=== PATIENT | female | born 1975 | race Caucasian/White ===

== ENCOUNTER 2016-10-11 18:40 | Emergency (ER) | payer MEDICAID, OTHER ==
[~2016-10-11 18:40] MED LIST: ATIV1TAB10 PO; PAXI30TA11 PO; PERC5TAB6 PO; XANA0.25 PO
[2016-10-11] MEDS ORDERED: LIDOCAINE 2% MDV 20 ML VIAL As Ordered ONE (20:19)
[2016-10-11] MEDS ORDERED: CLINDAMYCIN 150 MG CAP As Ordered ONE (20:19)
[2016-10-11] MEDS ORDERED: ADACEL/BOOSTRIX VACCINE (DIPHTH/PERTUSS/ACELL/TETANUS)0.5ML SYR (90715) As Ordered ONE (21:25)
--- NOTE | 2016-10-11 21:33 | EDDOCDS ---
Physician Documentation [facility] Name: Aisha Barcenas Age: 41 yrs Sex: Female : 1975 Arrival Date: 10/11/2016 Time: 18:40 Bed I1 / M1 Private MD: Huy Tolliver A. Disposition: 10/11/16 21:23 Discharged to Home/Self Care. Impression: Open wound of thumb without damage to nail - LEFT. - Condition is Stable. - Discharge Instructions: Laceration Care, Adult. - Prescriptions for Clindamycin HCl 300 mg Oral Capsule - take 1 capsule by ORAL route every 6 hours; 40 capsule. - Medication Reconciliation, Local Pharmacy Hours form. - Follow up: Huy Tolliver; When: 1 week; Reason: Staple/Suture removal, Recheck today's complaints, Continuance of care. - Problem is new. - Symptoms have improved. - Notes: PLEASE FOLLOW UP WITH YOUR DOCTOR NEXT WEEK FOR SUTURE REMOVAL, RETURN TO THE ER IF INCREASED PAIN, REDNESS, SWELLING, DISCHARGE OR OTHER CONCERNING SYMPTOMS ARISE Historical: - Allergies: arithmycin; Penicillin VK; - Home Meds: 1. Paxil 20 mg Oral tab once daily 2. Ativan 1 mg Oral tab as needed 3. Xanax 0.5 mg Oral tab as needed - PMHx: CLL; PNES; Anxiety; - PSHx: Hysterectomy; - Immunization history:: Last tetanus immunization: unknown reports greater than 5 years. - Family history: Not pertinent. - Social history: Smoking status: Patient states former smoker of tobacco. No barriers to communication noted, The patient speaks fluent Portuguese, Speaks appropriately for age. - : The pt / caregiver states he / she is not on anticoagulants. Home medication list is obtained from the patient. - Exposure Risk Screening:: None identified. 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 5 in. (165.10 cm); 21:30 BP 135 / 85; Pulse 72; Resp 18; Temp 98(O); Pulse Ox 99% on R/A; Pain 2/10; rs3 18:41 Body Mass Index 27.96 (76.20 kg, 165.10 cm) dem1 Procedures: 21:10 Laceration repair:. ck7 Laceration: 21:10 Wound Repair of 1cm ( 0.4in ) full thickness laceration to palmar aspect of distal ck7 phalanx of left thumb. Skin/tissue flap noted.. Minimal bleeding noted.. Distal neuro/vascular/tendon intact. Anesthesia: Digital block administered with 2 mls of 2% lidocaine. Wound prep: Extensive cleansing with hibiclenz by provider, Wound explored extensively. Skin closed with 3 x 4-0 Prolene using Simple interrupted sutures. Dressed with bandaid. Patient tolerated well. MDM: 20:13 Lidocaine 20 mg/mL (2 %) 10 ml Infiltration once; to bedside ordered. ck7 20:13 Clindamycin 300 mg PO once ordered. ck7 21:23 Tetanus-Diphtheria Toxoid (Tenivac) Adult 0.5 ml IM once; Age 7-10 or >[address] [facility] child contact [facility] ordered. 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 Exp: 10/21/2018. Lot #: [id number]. } Route: IM; Site: right deltoid; Signatures: Dena Gonzales RN RN rs3 Suresh Vásquez RPA-C RPA-Cck7 Elizabet Gandhi RN RN ead Farman, Justin, RN RN jf3 Crane, Kelsi RN kc3 The chart was reviewed and I authenticate all verbal orders and agree with the evaluation and treatment provided.Corrections: (The following items were deleted from the chart) :23 21:23 Tetanus Immune Globulin (PF) 250 units IM once ordered. ck7 ck7 MTDD
--- NOTE | 2016-10-11 21:33 | EDDOCDS ---
Nurse's Notes [facility] Name: Aisha Barcenas Age: 41 yrs Sex: Female : 1975 Arrival Date: 10/11/2016 Time: 18:40 Bed I1 / M1 Private MD: Huy Tolliver A. Diagnosis: Open wound of thumb without damage to nail-LEFT Presentation: 10/11 18:43 Presenting complaint: Patient states: pt reports cutting tip of left thumb with ceramic ead kitchen, incident occurred approx 1 hour ago. bleeding is controlled. pt states went to [facility] and told to come to ER. Adult Sepsis Screening: The patient does not have new or worsening altered mentation. Patient's respiratory rate is less than 22. Systolic blood pressure is greater than 100. Patient has a qSOFA score of 0- Negative Sepsis Screen. Suicide/Homicide risk assessment- the patient denies having any suicidal and/or homicidal ideations and does not present with any other emotional, behavioral or mental health complaints. Status: Patient is not a member service representative or dependent. Transition of care: patient was not received from another setting of care. 18:43 Acuity: JENN Level 4 ead 18:43 Method Of Arrival: Walkin/Carried/Asstd ead Triage Assessment: 18:46 General: Appears in no apparent distress, Behavior is appropriate for age, cooperative. ead Pain: Location: left hand Pain currently is 6 out of 10 on a pain scale. HIV screening NA for this visit Offered previously. Derm: Skin is pink, warm & dry. laceration to left thumb. 21:31 Injury Description: Laceration sustained to palmar aspect of distal phalanx of left rs3 thumb is clean. 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 Paxil 20 mg Oral tab once daily 2. Ativan 1 mg Oral tab as needed 3. Xanax 0.5 mg Oral tab as needed - PMHx: CLL; PNES; Anxiety; - PSHx: Hysterectomy; - Immunization history:: Last tetanus immunization: unknown reports greater than 5 years. - Family history: Not pertinent. - Social history: Smoking status: Patient states former smoker of tobacco. No barriers to communication noted, The patient speaks fluent Gambian, Speaks appropriately for age. - : The pt / caregiver states he / she is not on anticoagulants. Home medication list is obtained from the patient. - Exposure Risk Screening:: None identified. Screenin:18 Screening information is obtained from the patient. Fall risk: No risks identified. jf3 Assistance ADL's: requires no assistance with activities of daily living. Abuse/DV Screen: The patient / caregiver reports he/she is: not in a situation that causes fear, pain or injury. Nutritional screening: No deficits noted. Advance Directives: Currently, there is no health care proxy. There is no active DNR order. home support is adequate. Assessment: 21:18 General: Appears in no apparent distress, comfortable, Behavior is cooperative. Pain: jf3 Denies pain. Neurological: Level of Consciousness is awake, alert, Oriented to person, place, time. Cardiovascular: Capillary refill < 3 seconds Chest pain is denied. Respiratory: Airway is patent Respiratory effort is even, unlabored, Respiratory pattern is regular, symmetrical, Denies shortness of breath. Derm: lac to tip of left thumb, sutured and dressed by MINERVA Knott Wound not visualized. Vital Signs: 18:41 BP 156 / 83; Pulse 78; Resp 18; Temp 98.9(T); Pulse Ox 95% on R/A; Weight 76.2 kg; dem1 Height 5 ft. 5 in. (165.10 cm); 21:30 BP 135 / 85; Pulse 72; Resp 18; Temp 98(O); Pulse Ox 99% on R/A; Pain 2/10; rs3 18:41 Body Mass Index 27.96 (76.20 kg, 165.10 cm) [facility] Vitals: 18:41 Log In Time: October 11, 2016 at 18:38. [facility] ED Course: 18:40 Patient visited by Breezy Colmenares. dem1 18:40 Patient moved to Waiting dem1 18:41 Huy Tolliver is Private Physician. dem1 18:42 Patient moved to Pre RCE dem1 18:44 Triage Initiated ead 19:53 Patient moved to Triage 3 kc3 20:03 Sures[facility] ck7 20:03 Nagi Devries DO is Attending Physician. ck7 20:03 Patient visited by Suresh Vásquez RPA-C. ck7 20:29 Patient moved to I1 / M1 kc3 20:53 Patient visited by Suresh Vásquez RPA-C. ck7 21:18 The patient / caregiver is instructed regarding the plan of care and ED course. jf3 21:18 No IV's were initiated during this patient's visit. No procedures done that require jf3 assistance. 21:23 Patient visited by Suresh Vásquez RPA-C. ck7 21:23 Huy Tolliver is Referral Physician. 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 Exp: 10/21/2018. Lot #: [id number]. } Route: IM; Site: right deltoid; Order Results: There are currently no results for this order. Outcome: 21:23 Discharge ordered by Provider. ck7 21:31 Discharge Assessment: patient administered narcotics - no. The following High Risk rs3 Discharge criteria are identified: None. Discharged to home with family. Condition: stable. Discharge instructions given to patient, Instructed on discharge instructions, follow up and referral plans. medication usage, Demonstrated understanding of instructions, medications, Pt was receptive of discharge instructions/ teaching. Prescriptions given X 1. No special radiology studies were completed. Property :Personal belongings accompany Pt. 21:32 Patient left the ED. rs3 Signatures: Dena GonzalesRN RN rs3 Breezy Colmenares dem1 Suresh Vásquez RPA-C RPA-[facility]7 Elizabet Gandhi RN RN ead Crane, Kelsi, RN RN kc3 Farman,Johnathon,RN RN jf3 ENRIQUED
--- NOTE | 2016-10-13 22:34 | EDDOCDS ---
Physician Documentation [facility] Name: Aisha Barcenas Age: 41 yrs Sex: Female : 1975 Arrival Date: 10/11/2016 Time: 18:40 Bed I1 / M1 Private MD: Huy Tolliver A. Disposition: 10/11/16 21:23 Discharged to Home/Self Care. Impression: Open wound of thumb without damage to nail - LEFT. - Condition is Stable. - Discharge Instructions: Laceration Care, Adult. - Prescriptions for Clindamycin HCl 300 mg Oral Capsule - take 1 capsule by ORAL route every 6 hours; 40 capsule. - Medication Reconciliation, Local Pharmacy Hours form. - Follow up: Huy Tolliver; When: 1 week; Reason: Staple/Suture removal, Recheck today's complaints, Continuance of care. - Problem is new. - Symptoms have improved. - Notes: PLEASE FOLLOW UP WITH YOUR DOCTOR NEXT WEEK FOR SUTURE REMOVAL, RETURN TO THE ER IF INCREASED PAIN, REDNESS, SWELLING, DISCHARGE OR OTHER CONCERNING SYMPTOMS ARISE Historical: - Allergies: arithmycin; Penicillin VK; - Home Meds: 1. Paxil 20 mg Oral tab once daily 2. Ativan 1 mg Oral tab as needed 3. Xanax 0.5 mg Oral tab as needed - PMHx: CLL; PNES; Anxiety; - PSHx: Hysterectomy; - Immunization history:: Last tetanus immunization: unknown reports greater than 5 years. - Family history: Not pertinent. - Social history: Smoking status: Patient states former smoker of tobacco. No barriers to communication noted, The patient speaks fluent Romansh, Speaks appropriately for age. - : The pt / caregiver states he / she is not on anticoagulants. Home medication list is obtained from the patient. - Exposure Risk Screening:: None identified. 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 5 in. (165.10 cm); 21:30 BP 135 / 85; Pulse 72; Resp 18; Temp 98(O); Pulse Ox 99% on R/A; Pain 2/10; rs3 18:41 Body Mass Index 27.96 (76.20 kg, 165.10 cm) dem1 Procedures: 21:10 Laceration repair:. ck7 Laceration: 21:10 Wound Repair of 1cm ( 0.4in ) full thickness laceration to palmar aspect of distal ck7 phalanx of left thumb. Skin/tissue flap noted.. Minimal bleeding noted.. Distal neuro/vascular/tendon intact. Anesthesia: Digital block administered with 2 mls of 2% lidocaine. Wound prep: Extensive cleansing with hibiclenz by provider, Wound explored extensively. Skin closed with 3 x 4-0 Prolene using Simple interrupted sutures. Dressed with bandaid. Patient tolerated well. MDM: 20:13 Lidocaine 20 mg/mL (2 %) 10 ml Infiltration once; to bedside ordered. ck7 20:13 Clindamycin 300 mg PO once ordered. ck7 21:23 Tetanus-Diphtheria Toxoid (Tenivac) Adult 0.5 ml IM once; Age 7-10 or >64 without [facility] child contact [facility] [employer] ordered. 21:37 Financial registration complete. zo 21:37 [facility] Payment Agreement was scanned into [employer] and attached to record. zo 10/12 11:06 T-Sheet-- Draft Copy was scanned into [employer] and attached to record. 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 Exp: 10/21/2018. Lot #: [id number]. } Route: IM; Site: right deltoid; Signatures: Una Nolan, Reg Reg gb Keny Cameron RosemaryRN RN rs3 Suresh Vásquez, DARIN-C RPA-Cck7 Elizabet GandhiRN RN Johnathon Pemberton RN RN jf3 Megan Ferris RN kc3 The chart was reviewed and I authenticate all verbal orders and agree with the evaluation and treatment provided.Corrections: (The following items were deleted from the chart) 21:23 21:23 Tetanus Immune Globulin (PF) 250 units IM once ordered. ck7 ck7 Attachments: 21:37 [facility] Payment Agreement zo 10/12 11:06 T-Sheet-- Draft Copy gb Chart Complete MTDD
--- NOTE | 2016-10-13 22:34 | EDDOCDS ---
Physician Documentation [facility] Name: Aisha Barcenas Age: 41 yrs Sex: Female : 1975 Arrival Date: 10/11/2016 Time: 18:40 Bed I1 / M1 Private MD: Huy Tolliver A. Disposition: 10/11/16 21:23 Discharged to Home/Self Care. Impression: Open wound of thumb without damage to nail - LEFT. - Condition is Stable. - Discharge Instructions: Laceration Care, Adult. - Prescriptions for Clindamycin HCl 300 mg Oral Capsule - take 1 capsule by ORAL route every 6 hours; 40 capsule. - Medication Reconciliation, Local Pharmacy Hours form. - Follow up: Huy Tolliver; When: 1 week; Reason: Staple/Suture removal, Recheck today's complaints, Continuance of care. - Problem is new. - Symptoms have improved. - Notes: PLEASE FOLLOW UP WITH YOUR DOCTOR NEXT WEEK FOR SUTURE REMOVAL, RETURN TO THE ER IF INCREASED PAIN, REDNESS, SWELLING, DISCHARGE OR OTHER CONCERNING SYMPTOMS ARISE Historical: - Allergies: arithmycin; Penicillin VK; - Home Meds: 1. Paxil 20 mg Oral tab once daily 2. Ativan 1 mg Oral tab as needed 3. Xanax 0.5 mg Oral tab as needed - PMHx: CLL; PNES; Anxiety; - PSHx: Hysterectomy; - Immunization history:: Last tetanus immunization: unknown reports greater than 5 years. - Family history: Not pertinent. - Social history: Smoking status: Patient states former smoker of tobacco. No barriers to communication noted, The patient speaks fluent Persian, Speaks appropriately for age. - : The pt / caregiver states he / she is not on anticoagulants. Home medication list is obtained from the patient. - Exposure Risk Screening:: None identified. 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 5 in. (165.10 cm); 21:30 BP 135 / 85; Pulse 72; Resp 18; Temp 98(O); Pulse Ox 99% on R/A; Pain 2/10; rs3 18:41 Body Mass Index 27.96 (76.20 kg, 165.10 cm) dem1 Procedures: 21:10 Laceration repair:. ck7 Laceration: 21:10 Wound Repair of 1cm ( 0.4in ) full thickness laceration to palmar aspect of distal ck7 phalanx of left thumb. Skin/tissue flap noted.. Minimal bleeding noted.. Distal neuro/vascular/tendon intact. Anesthesia: Digital block administered with 2 mls of 2% lidocaine. Wound prep: Extensive cleansing with hibiclenz by provider, Wound explored extensively. Skin closed with 3 x 4-0 Prolene using Simple interrupted sutures. Dressed with bandaid. Patient tolerated well. MDM: 20:13 Lidocaine 20 mg/mL (2 %) 10 ml Infiltration once; to bedside ordered. ck7 20:13 Clindamycin 300 mg PO once ordered. ck7 21:23 Tetanus-Diphtheria Toxoid (Tenivac) Adult 0.5 ml IM once; Age 7-10 or >64 without [facility] child contact [facility] [employer] ordered. 21:37 Financial registration complete. zo 21:37 [facility] Payment Agreement was scanned into [employer] and attached to record. zo 10/12 11:06 T-Sheet-- Draft Copy was scanned into [employer] and attached to record. 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 Exp: 10/21/2018. Lot #: [id number]. } Route: IM; Site: right deltoid; Signatures: Una Nolan, Reg Reg gb Keny Cameron RosemaryRN RN rs3 Suresh Vásquez, DARIN-C RPA-Cck7 Elizabet GandhiRN RN Johnathon Pemberton RN RN jf3 Megan Ferris RN kc3 The chart was reviewed and I authenticate all verbal orders and agree with the evaluation and treatment provided.Corrections: (The following items were deleted from the chart) 21:23 21:23 Tetanus Immune Globulin (PF) 250 units IM once ordered. ck7 ck7 Attachments: 21:37 [facility] Payment Agreement zo 10/12 11:06 T-Sheet-- Draft Copy gb Chart Complete MTDD
--- NOTE | 2016-10-13 22:34 | EDDOCDS ---
Nurse's Notes [facility] Name: Aisha Barcenas Age: 41 yrs Sex: Female : 1975 Arrival Date: 10/11/2016 Time: 18:40 Bed I1 / M1 Private MD: Huy Tolliver A. Diagnosis: Open wound of thumb without damage to nail-LEFT Presentation: 10/11 18:43 Presenting complaint: Patient states: pt reports cutting tip of left thumb with ceramic ead kitchen, incident occurred approx 1 hour ago. bleeding is controlled. pt states went to [facility] and told to come to ER. Adult Sepsis Screening: The patient does not have new or worsening altered mentation. Patient's respiratory rate is less than 22. Systolic blood pressure is greater than 100. Patient has a qSOFA score of 0- Negative Sepsis Screen. Suicide/Homicide risk assessment- the patient denies having any suicidal and/or homicidal ideations and does not present with any other emotional, behavioral or mental health complaints. Status: Patient is not a social service manager or dependent. Transition of care: patient was not received from another setting of care. 18:43 Acuity: JENN Level 4 ead 18:43 Method Of Arrival: Walkin/Carried/Asstd ead Triage Assessment: 18:46 General: Appears in no apparent distress, Behavior is appropriate for age, cooperative. ead Pain: Location: left hand Pain currently is 6 out of 10 on a pain scale. HIV screening NA for this visit Offered previously. Derm: Skin is pink, warm & dry. laceration to left thumb. 21:31 Injury Description: Laceration sustained to palmar aspect of distal phalanx of left rs3 thumb is clean. 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 Paxil 20 mg Oral tab once daily 2. Ativan 1 mg Oral tab as needed 3. Xanax 0.5 mg Oral tab as needed - PMHx: CLL; PNES; Anxiety; - PSHx: Hysterectomy; - Immunization history:: Last tetanus immunization: unknown reports greater than 5 years. - Family history: Not pertinent. - Social history: Smoking status: Patient states former smoker of tobacco. No barriers to communication noted, The patient speaks fluent [place], Speaks appropriately for age. - : The pt / caregiver states he / she is not on anticoagulants. Home medication list is obtained from the patient. - Exposure Risk Screening:: None identified. Screenin:18 Screening information is obtained from the patient. Fall risk: No risks identified. jf3 Assistance ADL's: requires no assistance with activities of daily living. Abuse/DV Screen: The patient / caregiver reports he/she is: not in a situation that causes fear, pain or injury. Nutritional screening: No deficits noted. Advance Directives: Currently, there is no health care proxy. There is no active DNR order. home support is adequate. Assessment: 21:18 General: Appears in no apparent distress, comfortable, Behavior is cooperative. Pain: jf3 Denies pain. Neurological: Level of Consciousness is awake, alert, Oriented to person, place, time. Cardiovascular: Capillary refill < 3 seconds Chest pain is denied. Respiratory: Airway is patent Respiratory effort is even, unlabored, Respiratory pattern is regular, symmetrical, Denies shortness of breath. Derm: lac to tip of left thumb, sutured and dressed by MINERVA Knott Wound not visualized. Vital Signs: 18:41 BP 156 / 83; Pulse 78; Resp 18; Temp 98.9(T); Pulse Ox 95% on R/A; Weight 76.2 kg; dem1 Height 5 ft. 5 in. (165.10 cm); 21:30 BP 135 / 85; Pulse 72; Resp 18; Temp 98(O); Pulse Ox 99% on R/A; Pain 2/10; rs3 18:41 Body Mass Index 27.96 (76.20 kg, 165.10 cm) [facility] Vitals: 18:41 Log In Time: October 11, 2016 at 18:38. [facility] ED Course: 18:40 Patient visited by Breezy Colmenares. dem1 18:40 Patient moved to Waiting dem1 18:41 Huy Tolliver is Private Physician. dem1 18:42 Patient moved to Pre RCE dem1 18:44 Triage Initiated ead 19:53 Patient moved to Triage 3 kc3 20:03 [facility]ures[facility]C [facility]. ck7 20:03 Nagi Devries DO is Attending Physician. ck7 20:03 Patient visited by Suresh Vásquez RPA-C. ck7 20:29 Patient moved to I1 / M1 kc3 20:53 Patient visited by Suresh Vásquez RPA-C. ck7 21:18 The patient / caregiver is instructed regarding the plan of care and ED course. jf3 21:18 No IV's were initiated during this patient's visit. No procedures done that require jf3 assistance. 21:23 Patient visited by Suresh Vásquez RPA-C. ck7 21:23 Huy Tolliver is Referral Physician. ck7 21:37 REPLACED BY [facility] Payment Agreement was scanned into [employer] and attached to record. zo 10/12 11:06 T-Sheet-- Draft Copy was scanned into [employer] and attached to record. gb Administered Medications: 10/11 20:22 Drug: Lidocaine 10 ml [lidocaine 20 mg/mL (2 %) injection solution (10 mL)] {Note: kc3 administered by Suresh Vásquez PA-C.} Route: Infiltration; 20:22 Drug: Clindamycin 300 mg [clindamycin 150 mg capsule (2 caps)] Route: PO; kc3 21:23 CANCELLED (Other Intervention Used): Tetanus Immune Globulin (PF) 250 units IM once ck7 21:32 Drug: Tetanus-Diphtheria Toxoid (Tenivac) 0.5 ml [tetanus-diphtheria toxoids-Td 2 Lf rs3 unit-2 Lf unit/0.5 mL IM suspension (0.5 mL)] {Radio Survey Worker: [employer]. Exp: 10/21/2018. Lot #: [id number]. } Route: IM; Site: right deltoid; Order Results: There are currently no results for this order. Outcome: 21:23 Discharge ordered by Provider. ck7 21:31 Discharge Assessment: patient administered narcotics - no. The following High Risk rs3 Discharge criteria are identified: None. Discharged to home with family. Condition: stable. Discharge instructions given to patient, Instructed on discharge instructions, follow up and referral plans. medication usage, Demonstrated understanding of instructions, medications, Pt was receptive of discharge instructions/ teaching. Prescriptions given X 1. No special radiology studies were completed. Property :Personal belongings accompany Pt. 21:32 Patient left the ED. rs3 Signatures: Una Nolan, Reg Reg gb Keny Cameron Rosemary,RN RN rs3 Breezy Colmenares dem1 Suresh Vásquez, RPA-C RPA-Cck7 Elizabet Gandhi,RN RN carmend Megan Ferris,RN RN kc3 Johnathon Melendez,RN RN jf3 Chart Complete MTDD
== END 2016-10-11 21:32 | disposition home or self-care (01) ==
LOC: M ED 18:40
DX: S61.002A Unspecified open wound of left thumb without damage to nail, initial encounter (principal); W26.0XXA Contact with knife, initial encounter; Y92.010 Kitchen of single-family (private) house as the place of occurrence of the external cause; Y93.G1 Activity, food preparation and clean up; Y99.9 Unspecified external cause status; F44.5 Conversion disorder with seizures or convulsions; F41.9 Anxiety disorder, unspecified; Z87.891 Personal history of nicotine dependence; Z79.899 Other long term (current) drug therapy; Z88.0 Allergy status to penicillin

== ENCOUNTER → 2017-03-03 | Outpatient (CLI) | payer OTHER ==
[~2017-03-03] MED LIST changes: +CETI10TA; +PERC5TAB12 PO; -PERC5TAB6 PO; +SMZ/TMP
--- NOTE | 2017-03-03 16:32 | REP ---
Digital screening bilateral mammography with CAD: No comparison mammography. Findings: Scattered fibroglandular elements are seen bilaterally. There is a 6 mm nodule in the left central breast just medial to the plane of the nipple which merits further evaluation. No other significant mammographic finding. Impression: BIRADS category zero incomplete breast imaging. 6 mm nodular density middle third left breast centrally. Recommend diagnostic left breast mammography and focused left breast sonography. This mammogram was interpreted with the aid of an FDA-approved computer-aided detection system. The patient states she had a clinical breast exam in February 2017. The patient letter being requested is M0.
== END ==
LOC: M WHC 13:45
PROVIDERS: ATTEND Nurse Practitioner Women's Health
DX: Z12.31 Encounter for screening mammogram for malignant neoplasm of breast (principal); N63 Unspecified lump in breast; R92.2 Inconclusive mammogram

== ENCOUNTER 2017-03-16 21:58 | Emergency (ER) | payer MEDICAID, OTHER ==
[~2017-03-16] VITALS: Ht 165.1 cm; Wt 196.0 kg
[~2017-03-16 21:58] MED LIST changes: -CETI10TA; -SMZ/TMP
[2017-03-16] MEDS ORDERED: SMZ/TMP (22:24)
[2017-03-16] MEDS ORDERED: CETI10TA (22:24)
[2017-03-17] MEDS ORDERED: LIDOCAINE 2% MDV 20 ML VIAL SC ONE (03:15)
[2017-03-17 04:07] VITALS: BP 131/64
== END 2017-03-17 04:41 | disposition home or self-care (01) ==
LOC: M ED 21:58
DX: L02.416 Cutaneous abscess of left lower limb (principal)

== ENCOUNTER → 2017-03-25 | Outpatient (CLI) | payer OTHER ==
[~2017-03-25] MED LIST changes: +CETI10TA; +SMZ/TMP
--- NOTE | 2017-03-25 15:15 | REP ---
DIGITAL DIAGNOSTIC UNILATERAL LEFT BREAST MAMMOGRAPHY WITH CAD AND FOCUSED LEFT BREAST SONOGRAPHY: HISTORY: Screening mammography from 03/03/2017 is BIRADS category 0, incomplete because of a 6 mm nodular density in the middle third of the left breast. MAMMOGRAPHIC FINDINGS: Magnified focal spot compression CC, true MLO, and MLO views of the left breast confirm the presence of a partially circumscribed 6 mm nodule in the middle third of the left breast superior and slightly medial to the plane of the nipple at approximately 11-o'clock position. Scattered fibroglandular elements are seen elsewhere in the left breast, unchanged. No other significant finding. No microcalcification seen. SONOGRAPHIC FINDINGS: Focused left breast sonography is performed from 9-o'clock to 12- o'clock position. At approximately 12-o'clock position, there is a hypoechoic area measuring 0.8 x 0.3 x 0.6 cm located 7.3 cm from the nipple. This it is felt to correspond with the mammographic opacity. No internal blood flow is seen. No enhanced through transmission is noted. This is likely a small fibroadenoma or intramammary lymph node. IMPRESSION: BIRADS category 3, probably benign left mammography. 6-month followup left breast mammography and sonography recommended. BI-RADS/ACR category 3 mammogram. Probably benign findings. Initial short-term followup (usually 6 month) examination. This mammogram was interpreted with the aid of an FDA-approved computer-aided detection system. The patient states she/he had a clinical breast exam in 02/2017. The patient letter being requested is M3. Signed by Keith Garcias MD 03/25/2017 04:34 P
== END ==
LOC: M RAD 13:05
PROVIDERS: ATTEND Nurse Practitioner Women's Health
DX: R92.8 Other abnormal and inconclusive findings on diagnostic imaging of breast (principal)

== ENCOUNTER → 2017-09-29 | Outpatient (CLI) | payer OTHER | LOC: M RAD 12:19 | DX: Z85.6 Personal history of leukemia (principal); R59.0 Localized enlarged lymph nodes; R92.8 Other abnormal and inconclusive findings on diagnostic imaging of breast | CPT/HCPCS: 77065 ==

== ENCOUNTER → 2017-09-29 | Outpatient (CLI) | payer OTHER | LOC: M LAB 13:34 | DX: R63.5 Abnormal weight gain (principal) | CPT/HCPCS: 84443 ==

== ENCOUNTER → 2017-10-22 | Outpatient (CLI) | payer OTHER, MEDICAID | LOC: M LRY 17:26 | DX: M79.632 Pain in left forearm (principal) | CPT/HCPCS: 73090 ==

== ENCOUNTER → 2018-03-27 | Outpatient (CLI) | payer OTHER | LOC: M RAD 09:53 | DX: R92.8 Other abnormal and inconclusive findings on diagnostic imaging of breast (principal); R59.0 Localized enlarged lymph nodes | CPT/HCPCS: 77066 ==

== ENCOUNTER → 2018-04-03 | Outpatient (CLI) | payer OTHER | LOC: M RAD 10:49 | DX: J32.0 Chronic maxillary sinusitis (principal) | CPT/HCPCS: 70486 ==

== ENCOUNTER → 2018-10-17 | Outpatient (REF) | payer OTHER | LOC: M SFHCLERA 14:05 | PROVIDERS: ATTEND Physician Assistant | DX: J02.9 Acute pharyngitis, unspecified (principal) ==

== ENCOUNTER → 2018-11-07 | Outpatient (CLI) | payer OTHER ==
--- NOTE | 2018-11-07 16:00 | REP ---
UNILATERAL MAMMOGRAM LEFT BREAST WITH LEFT BREAST ULTRASOUND: Family history of breast cancer at age 50 or over in maternal grandmother. Comparison mammogram 03/27/2018. Patient has had enlarged left axillary lymph node felt to be related to history of CLL. There is also a history of a nodule in the left breast at about 11 o'clock. MLO and CC views of the left breast are performed with 3D tomosynthesis. Parenchymal pattern is unchanged. There is no new mass or clustered microcalcifications. Stable left axillary lymph nodes are present, the largest measures approximately 3.3 cm in maximum diameter, unchanged. No new mass or clustered microcalcifications are seen. Real-time sonographic evaluation of the left breast performed in the region of 11 o'clock. Once again, there is an oval nodule which appears unchanged, measuring about 8 x 3 x 7 mm. There is an adjacent tiny 3 mm cyst at 10 o'clock. IMPRESSION: BIRADS 3: BI-RADS/ACR category 3 mammogram. Probably Benign Findings. Stable left axillary lymph nodes present without other change by mammography. Stable oval hypoechoic nodule left breast at the 11 o'clock position. Recommend followup mammogram bilaterally in March 2019. [facility] lifetime risk of breast cancer 14.8%. This mammogram was interpreted with the aid of an FDA-approved computer-aided detection system. The patient states she/he had a clinical breast exam in 03/2018. The patient letter being requested is M3. Electronically Signed by Julian Alonzo MD 11/08/2018 01:51 P
== END ==
LOC: M RAD 12:20
PROVIDERS: ATTEND Nurse Practitioner Women's Health
DX: R92.8 Other abnormal and inconclusive findings on diagnostic imaging of breast (principal)
CPT/HCPCS: 76642; 77065; G0279

== ENCOUNTER → 2019-03-29 | Outpatient (CLI) | payer OTHER ==
--- NOTE | 2019-03-29 12:51 | REP ---
BILATERAL MAMMOGRAM WITH 3D TOMOSYNTHESIS AND LEFT BREAST ULTRASOUND: Bilateral mammography performed in the MLO and CC projections. 3D tomosynthesis was performed. Comparison made with multiple prior exams, most recently 11/07/2018 and 03/27/2018. FAMILY HISTORY: Breast cancer maternal grandmother. [facility]di M[facility] lifetime risk of breast cancer 14.8%. Personal history CLL. Fibroglandular pattern is unchanged with mild scattered fibroglandular tissue bilaterally. Nodular density posteromedially in the left breast is stable. There is again a prominent left axillary lymph node which appears stable measuring about 3.1 cm in diameter on the left MLO view. There is no new mass or clustered microcalcifications. Real-time sonographic evaluation of the left breast is performed at 11-o'clock at the site of the previously noted hypoechoic nodule. This nodule is stable since March 2017 measuring 9 x 7 x 4 mm. Since it is stable for 2 years, it is considered benign. In the left axilla, there are several lymph nodes identified. The largest measures 3.1 cm maximally corresponding to the lymph node seen on the mammogram. This has remained stable since September 2017. IMPRESSION: ACR 3 probably benign. No new mass or clustered microcalcifications. Stable hypoechoic nodule 11-o'clock left breast compared to prior studies dating back two years. This can be considered benign. Prominent left axillary lymph nodes again identified and appearing stable, with the largest measuring 3.1 cm maximally. These left axillary lymph nodes should still be followed with 6 month followup ultrasound of the left axilla recommended. BIRADS 3: BI-RADS/ACR category 3 mammogram. Probably Benign Findings. This mammogram was interpreted with the aid of an FDA-approved computer-aided detection system. The patient states she/he had a clinical breast exam 03/2019. The patient letter being requested is M3. Electronically Signed by Julian Alonzo MD 03/29/2019 02:00 P
== END ==
LOC: M RAD 10:44
PROVIDERS: ATTEND Nurse Practitioner Women's Health
DX: R92.8 Other abnormal and inconclusive findings on diagnostic imaging of breast (principal); N63.22 Unspecified lump in the left breast, upper inner quadrant
CPT/HCPCS: 76642; 77066; G0279

== ENCOUNTER → 2019-07-05 | Outpatient (REF) | payer OTHER ==
[2019-07-05 12:06] LABS: APPEARANCE, URINE CLEAR (CLEAR); BACTERIA, URINE AUTO NEGATIVE (NEGATIVE); BILIRUBIN, URINE AUTO NEGATIVE (NEGATIVE); BLOOD, URINE BLOOD 1+ (NEGATIVE); COLOR, URINE YELLOW (YELLOW); GLUCOSE, URINE (UA) AUTO NEGATIVE (NEGATIVE); KETONE, URINE AUTO NEGATIVE (NEGATIVE); LEUKOCYTE ESTERASE, URINE AUTO NEGATIVE (NEGATIVE); MUCUS, URINE SMALL (NEGATIVE); NITRITE, URINE AUTO NEGATIVE (NEGATIVE); PROTEIN, URINE AUTO NEGATIVE (NEGATIVE); RBC, URINE AUTO 4 /HPF (0-3); SPECIFIC GRAVITY URINE AUTO 1.019 (1.002-1.035); SQUAMOUS EPITHELIAL CELL UR AU 1 /HPF (0-6); UROBILINOGEN, URINE AUTO 0.2 mg/dL (0.0-2.0); WBC, URINE AUTO 0 /HPF (0-3)
[2019-07-05 12:18] LABS: ALBUMIN 3.9 GM/DL (3.2-5.2); ALT/SGPT 45 U/L (12-78); BILIRUBIN,TOTAL 0.5 MG/DL (0.2-1.0); BLOOD UREA NITROGEN 8 MG/DL (7-18); CALCIUM LEVEL 8.3 MG/DL (8.5-10.1); CARBON DIOXIDE LEVEL 25 MEQ/L (21-32); CHLORIDE LEVEL 109 MEQ/L (98-107); CHOLESTEROL LEVEL 189 MG/DL (<200); CREATININE FOR GFR 0.76 MG/DL (0.55-1.30); GLOMERULAR FILTRATION RATE > 60.0 (>58); GLUCOSE, FASTING 120 MG/DL (70-100); HDL CHOLESTEROL 45 MG/DL (>40); LDL CHOLESTEROL 113 MG/DL (<100); NON-HDL-C 144 MG/DL; POTASSIUM SERUM 4.1 MEQ/L (3.5-5.1); SODIUM LEVEL 142 MEQ/L (136-145); TOTAL PROTEIN 7.1 GM/DL (6.4-8.2); TRIGLYCERIDES LEVEL 154 MG/DL (<150)
[2019-07-05 12:32] LABS: HEMOGLOBIN A1c 5.9 %
== END ==
LOC: M LABDRAWP 09:48
PROVIDERS: ATTEND Family Medicine
DX: R73.9 Hyperglycemia, unspecified (principal); Z79.899 Other long term (current) drug therapy

== ENCOUNTER → 2019-08-06 | Outpatient (CLI) | payer OTHER ==
--- NOTE | 2019-08-06 19:22 | REP ---
Five views chest/ribs: 08/06/2019. Indication: Chest/rib pain. Comparison: None. Findings: The lungs are clear. There is no pleural effusion or pneumothorax. The cardiac silhouette is unremarkable. There is no evidence of lung contusion. There is no rib fracture detected. No erosive lesions are detected within the visualized bones. Impression: No acute cardiopulmonary process. No rib fracture detected. Electronically Signed by Virgil Lebron DO 08/06/2019 07:14 P
== END ==
LOC: M LRY 18:45
PROVIDERS: ATTEND Physician Assistant
DX: R07.89 Other chest pain (principal)

== ENCOUNTER → 2019-10-25 | Outpatient (CLI) | payer OTHER | LOC: M RAD 16:17 | PROVIDERS: ATTEND Nurse Practitioner Women's Health | DX: N60.02 Solitary cyst of left breast (principal); R59.0 Localized enlarged lymph nodes ==

== ENCOUNTER → 2019-10-30 | Outpatient (CLI) | payer OTHER | LOC: M SLEEP HO 14:16 | PROVIDERS: ATTEND Nurse Practitioner Adult Health | DX: G47.30 Sleep apnea, unspecified (principal) ==

== ENCOUNTER → 2020-02-04 | Outpatient (CLI) | payer OTHER ==
[~2020-02-04] MED LIST changes: -CETI10TA; +CETI10TA PO; +NAPR-885 PO; +NEXI20CA33 PO; +PARO20TA4 PO
== END ==
LOC: M LABSMTC 10:35
PROVIDERS: ATTEND Anesthesiology
DX: Z01.818 Encounter for other preprocedural examination (principal); Z11.59 Encounter for screening for other viral diseases
CPT/HCPCS: C9803; U0003

== ENCOUNTER 2020-02-07 12:19 | Day surgery (SDC) | payer OTHER ==
[~2020-02-07] VITALS: Ht 167.6 cm; Wt 99.8 kg
[~2020-02-07 12:19] MED LIST changes: +NS 1,000 ML IV ONE
[2020-02-07] MEDS ORDERED: LIDOCAINE 2% 100MG/5ML SDV (FOR ANES.) As Ordered ONE (13:11)
[2020-02-07] MEDS ORDERED: propofoL 200 MG/20 ML VIAL As Ordered ONE ×2 (13:11→14:11)
--- NOTE | 2020-02-07 14:16 | ROOR ---
Patient Name: Aisha Barcenas Procedure Date: 02/07/2020 1:57 PM Date of : 1975 Age: 44 Room: [facility] Gender: Female Note Status: Finalized Procedure: Colonoscopy Indications: High risk colon cancer surveillance: Personal history of colonic polyps Providers: Stevie Reeves Jr, MD Referring MD: Huy Tolliver MD Requesting Provider: Medicines: Propofol per Anesthesia Complications: No immediate complications. Procedure: Pre-Anesthesia Assessment: - Prior to the procedure, a History and Physical was performed, and patient medications and allergies were reviewed. The patient is competent. The risks and benefits of the procedure and the sedation options and risks were discussed with the patient. All questions were answered and informed consent was obtained. Patient identification and proposed procedure were verified by the physician and the nurse in the pre-procedure area and in the procedure room. Mental Status Examination: alert and oriented. Airway Examination: normal oropharyngeal airway and neck mobility. Respiratory Examination: clear to auscultation. CV Examination: normal. ASA Grade Assessment: II - A patient with mild systemic disease. After reviewing the risks and benefits, the patient was deemed in satisfactory condition to undergo the procedure. The anesthesia plan was to use moderate sedation / analgesia (conscious sedation). Immediately prior to administration of medications, the patient was re-assessed for adequacy to receive sedatives. The heart rate, respiratory rate, oxygen saturations, blood pressure, adequacy of pulmonary ventilation, and response to care were monitored throughout the procedure. The physical status of the patient was re-assessed after the procedure. The Colonoscope was introduced through the anus and advanced to the cecum, identified by appendiceal orifice and ileocecal valve. The colonoscopy was performed without difficulty. The patient tolerated the procedure well. The quality of the bowel preparation was adequate. Findings: The rectum, recto-sigmoid colon, descending colon, transverse colon, ascending colon, cecum, appendiceal orifice and ileocecal valve appeared normal. Many small and large-mouthed diverticula were found in the sigmoid colon. Non-bleeding external and internal hemorrhoids were found during endoscopy. The hemorrhoids were Grade III (internal hemorrhoids that prolapse but require manual reduction). Impression: - The rectum, recto-sigmoid colon, descending colon, transverse colon, ascending colon, cecum, appendiceal orifice and ileocecal valve are normal. - Diverticulosis in the sigmoid colon. - Non-bleeding external and internal hemorrhoids. - No specimens collected. Recommendation: - Discharge patient to home (ambulatory). - Repeat colonoscopy in 5 years for surveillance. Stevie Reeves MD Stevie Reeves Jr, MD 02/07/2020 2:15:35 PM Electronically signed by Stevie Reeves Jr, MD Number of Addenda: 0 Note Initiated On: 02/07/2020 1:57 PM Estimated Blood Loss: Estimated blood loss: none.
[2020-02-07 14:59] VITALS: BP 128/68
== END 2020-02-07 14:50 | disposition home or self-care (01) ==
LOC: M OPP 12:19
PROVIDERS: ATTEND Surgery
DX: Z12.11 Encounter for screening for malignant neoplasm of colon (principal); Z86.010 Personal history of colon polyps; K57.30 Diverticulosis of large intestine without perforation or abscess without bleeding; K64.2 Third degree hemorrhoids; Z79.899 Other long term (current) drug therapy; Z88.0 Allergy status to penicillin; Z88.1 Allergy status to other antibiotic agents; Z87.891 Personal history of nicotine dependence

== ENCOUNTER → 2020-05-28 | Outpatient (CLI) | payer OTHER ==
[~2020-05-28] MED LIST changes: -NS 1,000 ML IV ONE
--- NOTE | 2020-06-06 14:42 | REP ---
BILATERAL MAMMOGRAM WITH 3D TOMOSYNTHESIS AND LEFT AXILLARY ULTRASOUND COMPARISON: Made with multiple prior mammograms and ultrasounds, most recently 03/29/2019. HISTORY: Family history of breast cancer over age 50 in maternal grandmother. [facility] lifetime risk of breast cancer 14.5%. TECHNIQUE: Bilateral mammography performed in the MLO and CC projections. FINDINGS: Mild scattered fibroglandular tissue is unchanged. There is no new mass or clustered microcalcifications bilaterally. [place] breast density is A. Bilateral axillary lymph nodes are present and are partially visualized on the MLO views of the breasts. Real-time sonographic evaluation of the left axillary region is performed and compared to multiple prior exams. Once again, there are two dominant enlarged lymph nodes present in the left axilla. These do demonstrate echogenic fatty brijesh, but the hypoechoic cortex of the lymph nodes is thickened greater than 3 mm, which is considered abnormal. These lymph nodes measures 1.9 x 2.2 x 2.8 cm and 3.7 x 1.9 x 2.5 cm. The largest lymph node in the left axillary region on the 03/29/2019 ultrasound was 2.4 x 1.7 x 3.1 cm. The current measurement of the largest lymph node is about 6 mm larger in length. I suspect these lymph nodes are related to the patients diagnosis of chronic lymphocytic leukemia. IMPRESSION: ACR 2 benign. Bilateral mammogram is unchanged compared to prior studies with no new mass or clustered microcalcifications. Bilateral mammography is recommended in one year. Left axillary ultrasound again shows mildly enlarged lymph nodes with two dominant lymph nodes identified, as discussed in detail above. Compared to the prior ultrasound of 03/29/2019, the measurements are slightly larger on the current exam, the largest lymph node measures 6 mm greater in length than on the prior study. I suspect these lymph nodes are related to the patients diagnosis of chronic lymphocytic leukemia. Recommend clinical correlation and correlation with appropriate blood tests. This mammogram was interpreted with the assistance of an FDA approved computer- aided detection system. The patient states her last clinical breast exam was May 2020. Patient letter: 2. JOEL
== END ==
LOC: M WHC 12:48
PROVIDERS: ATTEND Nurse Practitioner Women's Health
DX: R92.8 Other abnormal and inconclusive findings on diagnostic imaging of breast (principal); R59.0 Localized enlarged lymph nodes
CPT/HCPCS: 76882; 77066; G0279

== ENCOUNTER → 2020-08-06 | Outpatient (REF) | payer OTHER | LOC: M LAB REF 17:22 | PROVIDERS: ATTEND Physician Assistant | DX: D22.61 Melanocytic nevi of right upper limb, including shoulder (principal) ==

== ENCOUNTER 2021-03-10 14:48 | Emergency (ER) | payer OTHER ==
[~2021-03-10] VITALS: Ht 167.6 cm; Wt 105.6 kg
[~2021-03-10 14:48] MED LIST changes: +MELO15TA28 PO; +NOXI1TAB PO
[2021-03-10] MEDS ORDERED: D31000TA2 PO (15:30)
[2021-03-10] MEDS ORDERED: NS 1,000 ML IV ONE (18:10)
[2021-03-10 18:32] LABS: HEMOGLOBIN 12.5 g/dl (12.0-15.5); MEAN CORPUSCULAR HGB CONC 32.9 g/dl (32.0-36.5); MEAN CORPUSCULAR VOLUME 94.3 fl (80.0-96.0); PLATELET COUNT, AUTOMATED 258 10^3/uL (150-450); RED BLOOD COUNT 4.03 10^6/uL (4.00-5.40)
[2021-03-10 18:33] LABS: WHITE BLOOD COUNT 65.4 10^3/uL (4.0-10.0)
[2021-03-10 19:11] LABS: ATYPICAL LYMPH 39 % (0-5); BASOPHILS 1 % (0-1); LYMPHOCYTES 44 % (16-44); MONOCYTES 3 % (0-5); NEUTROPHILS 13 % (28-66); PLATELET ESTIMATE NORMAL (NORMAL); SMUDGE CELLS 4+
[2021-03-10 19:19] LABS: ALBUMIN 3.7 GM/DL (3.2-5.2); ALT/SGPT 75 U/L (12-78); BILIRUBIN,TOTAL 0.4 MG/DL (0.2-1.0); BLOOD UREA NITROGEN 10 MG/DL (7-18); CALCIUM LEVEL 8.8 MG/DL (8.5-10.1); CARBON DIOXIDE LEVEL 25 MEQ/L (21-32); CHLORIDE LEVEL 108 MEQ/L (98-107); CREATININE FOR GFR 0.65 MG/DL (0.55-1.30); GLOMERULAR FILTRATION RATE > 60.0 (>58); GLUCOSE, FASTING 87 MG/DL (70-100); POTASSIUM SERUM 3.9 MEQ/L (3.5-5.1); SODIUM LEVEL 143 MEQ/L (136-145); TOTAL PROTEIN 6.9 GM/DL (6.4-8.2)
[2021-03-10 20:29] VITALS: BP 152/90
== END 2021-03-10 20:38 | disposition home or self-care (01) ==
LOC: M ED 14:48
DX: K92.2 Gastrointestinal hemorrhage, unspecified (principal); K64.9 Unspecified hemorrhoids; C91.10 Chronic lymphocytic leukemia of B-cell type not having achieved remission; M79.7 Fibromyalgia; Z79.899 Other long term (current) drug therapy; Z88.0 Allergy status to penicillin; Z88.1 Allergy status to other antibiotic agents; Z98.890 Other specified postprocedural states; Z87.891 Personal history of nicotine dependence; Z82.49 Family history of ischemic heart disease and other diseases of the circulatory system; Z83.3 Family history of diabetes mellitus

== ENCOUNTER → 2021-07-03 | Outpatient (CLI) | payer OTHER ==
[~2021-07-03] MED LIST changes: +D31000TA2 PO
[2021-07-03 16:53] LABS: ALBUMIN 3.8 GM/DL (3.2-5.2); ALT/SGPT 41 U/L (12-78); BILIRUBIN,TOTAL 0.6 MG/DL (0.2-1.0); BLOOD UREA NITROGEN 10 MG/DL (7-18); CALCIUM LEVEL 9.3 MG/DL (8.5-10.1); CARBON DIOXIDE LEVEL 27 MEQ/L (21-32); CHLORIDE LEVEL 110 MEQ/L (98-107); CHOLESTEROL LEVEL 190 MG/DL (<200); CREATININE FOR GFR 0.78 MG/DL (0.55-1.30); GLOMERULAR FILTRATION RATE > 60.0 (>58); GLUCOSE, FASTING 114 MG/DL (70-100); HDL CHOLESTEROL 50 MG/DL (>40); LDL CHOLESTEROL 116 MG/DL (<100); NON-HDL-C 140 MG/DL; POTASSIUM SERUM 4.4 MEQ/L (3.5-5.1); SODIUM LEVEL 142 MEQ/L (136-145); THYROID STIMULATING HORMONE 0.649 uIU/ML (0.358-3.740); TOTAL PROTEIN 6.7 GM/DL (6.4-8.2); TRIGLYCERIDES LEVEL 120 MG/DL (<150)
== END ==
LOC: M WUC 10:40
PROVIDERS: ATTEND Family Medicine
DX: Z79.899 Other long term (current) drug therapy (principal); R73.9 Hyperglycemia, unspecified

== ENCOUNTER 2021-07-27 12:10 | Emergency (ER) | payer OTHER ==
[~2021-07-27] VITALS: Ht 165.1 cm; Wt 102.1 kg
[2021-07-27 12:10] VITALS: BP 137/84
--- OUTSIDE RECORDS SUMMARY | 2021-07-27 12:24 | CCD ---
Author Author [facility] Organization [facility] Address Unknown Phone Unavailable Care Team Providers Care Hot Mix Operator Name Role Phone Justin, L Genia ETL INFORMATICA ARCHITECT Unavailable Unavailable Justin, L Genia ETL INFORMATICA ARCHITECT Unavailable Unavailable Justin, L Genia ETL INFORMATICA ARCHITECT Unavailable Unavailable Justin, L Genia ETL INFORMATICA ARCHITECT Unavailable Unavailable Justin, L Genia ETL INFORMATICA ARCHITECT Unavailable Unavailable Justin, L Genia ETL INFORMATICA ARCHITECT Unavailable Unavailable Justin, L Genia ETL INFORMATICA ARCHITECT Unavailable Unavailable Justin, L Genia ETL INFORMATICA ARCHITECT Unavailable Unavailable Justin, L Genia ETL INFORMATICA ARCHITECT Unavailable Unavailable Justin, L Genia ETL INFORMATICA ARCHITECT Unavailable Unavailable Justin, L Genia ETL INFORMATICA ARCHITECT Unavailable Unavailable Justin, L Genia ETL INFORMATICA ARCHITECT Unavailable Unavailable Justin, L Genia ETL INFORMATICA ARCHITECT Unavailable Unavailable Justin, L Genia ETL INFORMATICA ARCHITECT Unavailable Unavailable Justin, L Genia ETL INFORMATICA ARCHITECT Unavailable Unavailable Justin, L Genia ETL INFORMATICA ARCHITECT Unavailable Unavailable Justin, L Genia ETL INFORMATICA ARCHITECT Unavailable Unavailable Justin, L Genia ETL INFORMATICA ARCHITECT Unavailable Unavailable Justin, L Genia ETL INFORMATICA ARCHITECT Unavailable Unavailable Justin, L Genia ETL INFORMATICA ARCHITECT Unavailable Unavailable Justin, L Genia ETL INFORMATICA ARCHITECT Unavailable Unavailable Justin, L Genia ETL INFORMATICA ARCHITECT Unavailable Unavailable Justin, L Genia ETL INFORMATICA ARCHITECT Unavailable Unavailable Justin, L Genia ETL INFORMATICA ARCHITECT Unavailable Unavailable Justin, L Genia ETL INFORMATICA ARCHITECT Unavailable Unavailable GREG, A. MANAGER CODE FAROOQ Unavailable [phone] GREG, A. MANAGER CODE FAROOQ Unavailable [phone] GREG, A. MANAGER CODE FAROOQ Unavailable [phone] GREG, A. MANAGER CODE FAROOQ Unavailable [phone] GREG, A. MANAGER CODE FAROOQ Unavailable [phone] GREG, A. MANAGER CODE FAROOQ Unavailable [phone] GREG, A. MANAGER CODE FAROOQ Unavailable [phone] GREG, A. MANAGER CODE FAROOQ Unavailable [phone] GREG, A. MANAGER CODE FAROOQ Unavailable [phone] GREG, A. MANAGER CODE FAROOQ Unavailable [phone] GREG, A. MANAGER CODE FAROOQ Unavailable [phone] GREG, A. MANAGER CODE FAROOQ Unavailable [phone] GREG, A. MANAGER CODE FAROOQ Unavailable [phone] GREG, A. MANAGER CODE FAROOQ Unavailable [phone] GREG, A. MANAGER CODE FAROOQ Unavailable [phone] GREG, A. MANAGER CODE FAROOQ Unavailable [phone] DRAZEK, I SALVATORE PA Unavailable Unavailable DRAZEK, I SALVATORE PA Unavailable Unavailable DRAZEK, I SALVATORE PA Unavailable Unavailable DRAZEK, I SALVATORE PA Unavailable Unavailable DRAZEK, I SALVATORE PA Unavailable Unavailable DRAZEK, I SALVATORE PA Unavailable Unavailable DRAZEK, I SALVATORE PA Unavailable Unavailable DRAZEK, I SALVATORE PA Unavailable Unavailable DRAZEK, I SALVATORE PA Unavailable Unavailable DRAZEK, I SALVATORE PA Unavailable Unavailable DRAZEK, I SALVATORE PA Unavailable Unavailable DRAZEK, I SALVATORE PA Unavailable Unavailable DRAZEK, I SALVATORE PA Unavailable Unavailable DRAZEK, I SALVATORE PA Unavailable Unavailable DRAZEK, I SALVATORE PA Unavailable Unavailable DRAZEK, I SALVATORE PA Unavailable Unavailable DRAZEK, I SALVATORE PA Unavailable Unavailable DRAZEK, I SALVATORE PA Unavailable Unavailable DRAZEK, I SALVATORE PA Unavailable Unavailable DRAZEK, I SALVATORE PA Unavailable Unavailable DRAZEK, I SALVATORE PA Unavailable Unavailable DRAZEK, I SALVATORE PA Unavailable Unavailable DRAZEK, I SALVATORE PA Unavailable Unavailable DRAZEK, I SALVATORE PA Unavailable Unavailable DRAZEK, I SALVATORE PA Unavailable Unavailable DRAZEK, I SALVATORE PA Unavailable Unavailable DRAZEK, I SALVATORE PA Unavailable Unavailable DRAZEK, I SALVATORE PA Unavailable Unavailable DRAZEK, I SALVATORE PA Unavailable Unavailable DRAZEK, I SALVATORE PA Unavailable Unavailable Chris Reeves JR, MD Unavailable Unavailable Chris Reeves JR, MD Unavailable Unavailable Chris Reeves JR, MD Unavailable Unavailable Chris Reeves JR, MD Unavailable Unavailable Chris Reeves JR, MD Unavailable Unavailable Chris Reeves JR, MD Unavailable Unavailable Chris Reeves JR, MD Unavailable Unavailable Chris Reeves JR, MD Unavailable Unavailable Chris Reeves JR, MD Unavailable Unavailable Chris Reeves JR, MD Unavailable Unavailable Chris Reeves JR, MD Unavailable Unavailable Chris Reeves JR, MD Unavailable Unavailable Chris Reeves JR, MD Unavailable Unavailable Chris Reeves JR, MD Unavailable Unavailable Chris Reeves JR, MD Unavailable Unavailable Chris Reeves JR, MD Unavailable Unavailable Chris Reeves JR, MD Unavailable Unavailable Chris Reeves JR, MD Unavailable Unavailable Chris Reeves JR, MD Unavailable Unavailable Chris Reeves JR, MD Unavailable Unavailable Chris Reeves JR, MD Unavailable Unavailable Chris Reeves JR, MD Unavailable Unavailable Chris Reeves JR, MD Unavailable Unavailable Chris Reeves JR, MD Unavailable Unavailable Chris Reeves JR, MD Unavailable Unavailable Chris Reeves JR, MD Unavailable Unavailable Chris Reeves JR, MD Unavailable Unavailable Chris Reeves JR, MD Unavailable Unavailable Chris Reeves JR, MD Unavailable Unavailable Chris Reeves JR, MD Unavailable Unavailable Chris Reeves JR, MD Unavailable Unavailable Chris Reeves JR, MD Unavailable Unavailable Chris Reeves JR, MD Unavailable Unavailable Chris Reeves JR, MD Unavailable Unavailable Chris Reeves JR, MD Unavailable Unavailable Chris Reeves JR, MD Unavailable Unavailable Chris Reeves JR, MD Unavailable Unavailable Chris Reeves JR, MD Unavailable Unavailable Chris Reeves JR, MD Unavailable Unavailable Chris Reeves JR, MD Unavailable Unavailable Chris Reeves JR, MD Unavailable Unavailable Chris Reeves JR, MD Unavailable Unavailable Chris Reeves JR, MD Unavailable Unavailable Chris Reeves JR, MD Unavailable Unavailable Chris Reeves JR, MD Unavailable Unavailable Chris Reeves JR, MD Unavailable Unavailable Chris Reeves JR, MD Unavailable Unavailable Chris Reeves JR, MD Unavailable Unavailable Chris Reeves JR, MD Unavailable Unavailable Chris Reeves JR, MD Unavailable Unavailable Chris Reeves JR, MD Unavailable Unavailable Chris Reeves JR, MD Unavailable Unavailable Chris Reeves JR, MD Unavailable Unavailable Chris Reeves JR, MD Unavailable Unavailable Chris Reeves JR, MD Unavailable Unavailable Dayne BARBOZA MD Unavailable Unavailable Dayne BARBOZA MD Unavailable Unavailable Dayne BARBOZA MD Unavailable Unavailable Dayne BARBOZA MD Unavailable Unavailable Dayne BARBOZA MD Unavailable Unavailable Dayne BARBOZA MD Unavailable Unavailable Dayne BARBOZA MD Unavailable Unavailable Dayne BARBOZA MD Unavailable Unavailable Dayne BARBOZA MD Unavailable Unavailable Dayne BARBOZA MD Unavailable Unavailable Dayne BARBOZA MD Unavailable Unavailable Dayne BARBOZA MD Unavailable Unavailable Dayne BARBOZA MD Unavailable Unavailable Dayne BARBOZA MD Unavailable Unavailable Dayne BARBOZA MD Unavailable Unavailable Dayne BARBOZA MD Unavailable Unavailable Dayne BARBOZA MD Unavailable Unavailable Dayne BARBOZA MD Unavailable Unavailable Dayne BARBOZA MD Unavailable Unavailable Dayne BARBOZA MD Unavailable Unavailable Dayne BARBOZA MD Unavailable Unavailable Dayne BARBOZA MD Unavailable Unavailable Dayne BARBOZA MD Unavailable Unavailable Dayne BARBOZA MD Unavailable Unavailable Dayne BARBOZA MD Unavailable Unavailable Dayne BARBOZA MD Unavailable Unavailable Dayne BARBOZA MD Unavailable Unavailable Dayne BARBOZA MD Unavailable Unavailable CHANDRALADayne MD Unavailable Unavailable CHANDRALADayne MD Unavailable Unavailable CHANDRALADayne MD Unavailable Unavailable GABINORALADayne MD Unavailable Unavailable Dayne BARBOZA MD Unavailable Unavailable Re-disclosure Warning The records that you are about to access may contain information from federally-assisted alcohol or drug abuse programs. If such information is present, then the following federally mandated warning applies: This information has been disclosed to you from records protected by federal confidentiality rules (42 CFR part 2). The federal rules prohibit you from making any further disclosure of this information unless further disclosure is expressly permitted by the written consent of the person to whom it pertains or as otherwise permitted by 42 CFR part 2. A general authorization for the release of medical or other information is NOT sufficient for this purpose. The Federal rules restrict any use of the information to criminally investigate or prosecute any alcohol or drug abuse patient.The records that you are about to access may contain highly sensitive health information, the redisclosure of which is protected by Article 27-F of the [place] Public Health law. If you continue you may have access to information: Regarding HIV / AIDS; Provided by facilities licensed or operated by the [facility] Office of Mental Health; or Provided by the [facility] Office for People With Developmental Disabilities. If such information is present, then the following [facility] mandated warning applies: This information has been disclosed to you from confidential records which are protected by state law. State law prohibits you from making any further disclosure of this information without the specific written consent of the person to whom it pertains, or as otherwise permitted by law. Any unauthorized further disclosure in violation of state law may result in a fine or intermediate sentence or both. A general authorization for the release of medical or other information is NOT sufficient authorization for further disc losure. Family History Family Member Name Family Member Gender Family Member Status Date o f Status Description Data Source(s) Unknown Unknown Problem [facility] ([facility], ) Unknown Unknown Problem MEDENT ([facility], ) Unknown Unknown Problem MED[facility] ([facility], ) Unknown Unknown Problem MED[facility] ([facility], ) Unknown Unknown Problem MED[facility] ([facility], ) Unknown Unknown Problem MED[facility] ([facility], ) Unknown Unknown Problem MEDENT ([facility], ) Encounters Encounter Providers Location Date Indications Data Source(s ) Outpatient Attender: FAROOQ GARZA 03/2021 11:45:41 AM EST - 07/12/2021 01:21:31 PM EST DocuTap ([facility] ) Outpatient Attender: Stevie Reeves JR [place] 03/30/2021 03:15:00 PM EDT MEDENT ([facility], ) Outpatient Attender: TIMOTHY BARBOZA MD [place]/Reindl 03/12/2021 01:50:00 PM EDT [facility] Outpatient Attender: Genia Anderson NP [place] 01/21/2021 01:30:00 PM EDT MEDENT ([facility], ) Office Visit Attender: SALVATORE PALMA Physical Therapy 2020 01:00:00 PM EST MEDENT ([facility]) Office Visit Attender: SALVATORE PALMA Physical Therapy 2019 03:30:00 PM EST MEDENT ([facility]) Outpatient [address] [place] [address], [facility] [id number] 08/06/2020 12:00:00 AM EST eCW1 ([facility]) Office Visit Attender: SALVATORE PALMA Physical Therapy 2019 08:15:00 AM EST MEDENT ([facility]) Office Visit Attender: SALVATORE PALMA Physical Therapy 2019 02:45:00 PM EST MEDENT ([facility]) Office Visit Attender: SALVATORE PALMA Physical Therapy 2019 01:45:00 PM EST MEDENT ([facility]) Outpatient Attender: SALVATORE PALMA Physical Therapy 07/03/2020 0 3:00:00 PM EDT MED[facility] ([facility]) Immunizations Vaccine Date Status Description Data Source(s) COVID-19 VACCINE Pfizer 12/05/2020 12:00:00 AM EDT completed [facility] Vaccine Series Complete: YESThis Data wa s Submitted to [facility] Via [employer]. COVID-19 VACCINE Pfizer 11/14/2020 12:00:00 AM EST completed [facility] Vaccine Series Complete: NOThis Data was Submitted to [facility] [employer]. Medications Medication Brand Name Start Date Product Form Dose Route Admi nistrative Instructions Pharmacy Instructions Status Indications Reaction Description Data Source(s) meloxicam 15 MG Oral Tablet Meloxicam 09/30/2020 12:00:00 AM EST ORAL active MEDENT ([facility] ) Clindamycin 10 MG/ML Topical Lotion Clindamycin Phosph ate 1 % Clindamycin Phosphate 1 % 08/06/2020 12:00:00 AM EST 1.0 {application} active Clindamycin Phosphate 1 % eCW1 ([facility]) Insurance Providers Payer name Policy type / Coverage type Policy ID Covered alliance party ID Covered alliance party's relationship to cortez Policy [place] Plan Information RUSTY I [id number] Self [id number] RUSTY [id number] SP [id number] 400 RUSTY [id number] SP [id number] 400 RUSTY [id number] SP [id number] 400 RUSTY [id number] SP [id number] 400 Rusty [employer] 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 [id number] ANSI-Medicaid [id number] ANSI-Commercial [id number] Medicaid [facility] Part B [id number] Self [id number] Rusty Care [place] Medicaid [id number] Self [id number] Medicaid [place] Medigap Part B [id number] Self [id number] Rusty Care [place] Medicaid [id number] Self [id number] MEDICAID M [id number] S [id number] MEDICAID [id number] SP [id number] [place] Medicaid [id number] Self Medicaid [facility] Part B [id number] Self [facility] [id number] SP [id number] Medicaid [place] Medicaid [id number] Self SELF PAY UNAVAILABLE SP UNAVAILA BLE RUSTY [id number] SP [id number] [facility] [facility] [place] [id number] SP [id number] [place] [id number] S [id number] ANSI-Medicaid [id number] ANSI-Commercial [id number] ANSI-Medicaid [id number] ANSI-Commercial [id number] Problems, Conditions, and Diagnoses Code Display Name Description Problem Type Effective Dates Data Source(s) L71.9 [id number] Acne rosacea Problem 08/06/2020 12:00:00 AM EST eCW1 ([facility]) Surgeries/Procedures Procedure Description Date Indications Data Source(s) Hemorrhoidectomy, By Simple Ligature 03/30/2021 12:00: 00 AM EDT MED[facility] ([facility], ) OFFICE OUTPATIENT VISIT 25 MINUTES 03/30/2021 12:00:00 AM EDT MEDENT ([facility], ) OFFICE OUTPATIENT VISIT 15 MINUTES 03/12/2021 12:00:00 AM EDT MEDENT ([facility]) OFFICE OUTPATIENT VISIT 15 MINUTES 01/21/2021 12:00:00 AM EDT MEDENT ([facility], ) Therapeutic Activities Direct, Each 15 Minutes 12:00:00 AM EST MEDENT ([facility] ) THERAPEUTIC PX 1/> AREAS EACH 15 MIN EXERCISES 12:00:00 AM EST MEDENT ([facility] ) MANUAL THERAPY TQS 1/> REGIONS EACH 15 MINUTES 12:00:00 AM EST MED[facility] ([facility] ) Therapeutic Activities Direct, Each 15 Minutes 12:00:00 AM EST MED[facility] ([facility] ) Re-Eval Of PT Established Plan Of Care 20Mins Face To Face P T/Fam 10/31/2020 12:00:00 AM EST [facility] ([facility] ) Therapeutic Activities Direct, Each 15 Minutes 12:00:00 AM EST MEDENT ([facility] ) Physical Therapy Eval - Mod Complexity 09/04/2020 12:0 0:00 AM EST MEDENT ([facility]) RADEX FOOT COMPLETE MINIMUM 3 VIEWS 08/19/2020 12:00:0 0 AM EST MEDENT ([facility]) RADEX FOOT COMPLETE MINIMUM 3 VIEWS 07/29/2020 12:00:0 0 AM EST MEDENT ([facility]) THERAPEUTIC PX 1/> AREAS EACH 15 MIN EXERCISES 12:00:00 AM EST [facility] ([facility]) THERAPEUTIC PX 1/> AREAS EACH 15 MIN EXERCISES 12:00:00 AM EST MEDENT ([facility]) Apply Cast Short Leg Walking 07/15/2020 12:00:00 AM ES T MED[facility] ([facility]) RADEX FOOT COMPLETE MINIMUM 3 VIEWS 07/10/2020 12:00:0 0 AM EST [facility] ([facility]) THERAPEUTIC PX 1/> AREAS EACH 15 MIN EXERCISES 12:00:00 AM EST [facility]ENT ([facility]) FX Metatarsal W/O Manipulation 07/03/2020 12:00:00 AM EDT [facility] ([facility]) RADEX FOOT COMPLETE MINIMUM 3 VIEWS 07/03/2020 12:00:0 0 AM EDT MED[facility] ([facility]) THERAPEUTIC PX 1/> AREAS EACH 15 MIN EXERCISES 12:00:00 AM EDT [facility] ([facility]) THERAPEUTIC PX 1/> AREAS EACH 15 MIN EXERCISES 12:00:00 AM EDT [facility] ([facility]) Results ID Date Data Source [id number] 07/12/2021 12:00:00 PM EST [facility] Name Value Range Interpretation Code Description Data Ava rce(s) Supporting Document(s) SARS-CoV-2 RNA Resp Ql BETH+probe NOT DETECTED [facility] This lab was ordered by [facility] and reported by [facility]. ID Date Data Source [id number] 06/03/2021 12:00:00 AM EDT [facility] Name Value Range Interpretation Code Description Data Ava rce(s) Supporting Document(s) SARS-CoV2 Rapid Antigen Negative [facility] This lab was ordered by [facility] an d reported by [facility]. ID Date Data Source [id number] 03/25/2021 12:00:00 AM EDT [facility] Name Value Range Interpretation Code Description Data Ava rce(s) Supporting Document(s) SARS coronavirus 2 RNA Negative [facility] This lab was ordered by [facility] and reported by [facility]. Procedure Social History Code Duration Value Status Description Data Source(s ) Smoking 01/21/2021 12:00:00 AM EDT Patient is a former smoker completed Patient is a former smoker [facility] ([facility]) Smoking 08/06/2020 12:00:00 AM EST Former Smoker completed Former Smoker eCW1 ([facility]) Vital Signs ID Date Data Source UNK Name Value Range Interpretation Code Description Data Source(s) Systolic blood pressure 137 mm[Hg] 137 mm[Hg] [facility] ([facility]) Diastolic blood pressure 82 mm[Hg] 82 mm[Hg] [facility] ([facility]) Body height 66 [in_i] 66 [in_i] [facility] ([facility]) 5'6" Body weight 229.25 [lb_av] 229.25 [lb_av] [facility] T ([facility]) Body mass index (BMI) [Ratio] 37.0 kg/m2 37.0 k g/m2 [facility] ([facility]) [place] body weight 130 [lb_av] 130 [lb_av] [facility] T ([facility]) Body weight 103.988 kg 103.988 kg [facility] ([facility]) Body surface area Derived from formula 2.12 m2 2.12 m2 [facility] ([facility]) Diastolic blood pressure 70 mm[Hg] 70 mm[Hg] [facility] ([facility]) Body height 66 [in_i] 66 [in_i] [facility] ([facility]) 5'6" Body weight 230.00 [lb_av] 230.00 [lb_av] [facility] T ([facility]) Body mass index (BMI) [Ratio] 37.1 kg/m2 37.1 k g/m2 [facility] ([facility]) Systolic blood pressure 116 mm[Hg] 116 mm[Hg] [facility] ([facility]) [place] body weight 130 [lb_av] 130 [lb_av] [facility] ([facility]) Body weight 104.328 kg 104.328 kg [facility] ([facility]) Body surface area Derived from formula 2.12 m2 2.12 m2 [facility] ([facility]) Body height 66 [in_i] 66 [in_i] [facility] ([facility]) 5'6" Body weight 230.00 [lb_av] 230.00 [lb_av] [facility] T ([facility]) Body mass index (BMI) [Ratio] 37.1 kg/m2 37.1 k g/m2 [facility] ([facility]) [place] body weight 130 [lb_av] 130 [lb_av] [facility] T ([facility]) Body weight 104.328 kg 104.328 kg [facility] ([facility]) Body surface area Derived from formula 2.01 m2 2.01 m2 [facility] ([facility]) Oxygen saturation in Arterial blood by Pulse oximetry 97 % 97 % [facility] ([facility]) Body height 66 [in_i] 66 [in_i] [facility] ([facility]) 5'6" Body weight 203.12 [lb_av] 203.12 [lb_av] MED[facility] T ([facility]) Body mass index (BMI) [Ratio] 32.8 kg/m2 32.8 k g/m2 [facility] ([facility]) [place] body weight 130 [lb_av] 130 [lb_av] MED[facility] T ([facility]) Body weight 92.138 kg 92.138 kg [facility] ([facility]) Systolic blood pressure 120 mm[Hg] 120 mm[Hg] [facility] ([facility]) Diastolic blood pressure 78 mm[Hg] 78 mm[Hg] [facility] ([facility]) Heart rate 77 /min 77 /min [facility] ([facility]) Body weight 231 [lb_av] 231 [lb_av] eCW1 ([facility]) Body height 65 [in_i] 65 [in_i] eCW1 ([facility]) Body mass index (BMI) [Ratio] 38.44 kg/m2 38.44 kg/m2 [facility] ([facility]) Systolic blood pressure 124 mm[Hg] 124 mm[Hg] e CW1 ([facility]) Diastolic blood pressure 82 mm[Hg] 82 mm[Hg] [facility] ([facility]) Body temperature 96.9 [degF] 96.9 [degF] MEDENT ([facility]) Body temperature 97.1 [degF] 97.1 [degF] MEDENT ([facility]) Patient Treatment Plan of Care Planned Activity Planned Date Details Description Data Source (s) Clindamycin 10 MG/ML Topical Lotion 08/06/2020 12:00:00 AM EST [facility] ([facility])
--- OUTSIDE RECORDS SUMMARY | 2021-07-27 15:11 | CCD ---
Author Author [facility] Organization [facility] Address Unknown Phone Unavailable Care Team Providers Care Internal Specialist Name Role Phone Justin, L Genia CHRONOMETER REPAIRER Unavailable Unavailable Justin, L Genia CHRONOMETER REPAIRER Unavailable Unavailable Justin, L Genia CHRONOMETER REPAIRER Unavailable Unavailable Justin, L Genia CHRONOMETER REPAIRER Unavailable Unavailable Justin, L Genia CHRONOMETER REPAIRER Unavailable Unavailable Justin, L Genia CHRONOMETER REPAIRER Unavailable Unavailable Justin, L Genia CHRONOMETER REPAIRER Unavailable Unavailable Justin, L Genia CHRONOMETER REPAIRER Unavailable Unavailable Justin, L Genia CHRONOMETER REPAIRER Unavailable Unavailable Justin, L Genia CHRONOMETER REPAIRER Unavailable Unavailable Justin, L Genia CHRONOMETER REPAIRER Unavailable Unavailable Justin, L Genia CHRONOMETER REPAIRER Unavailable Unavailable Justin, L Genia CHRONOMETER REPAIRER Unavailable Unavailable Justin, L Genia CHRONOMETER REPAIRER Unavailable Unavailable Justin, L Genia CHRONOMETER REPAIRER Unavailable Unavailable Justin, L Genia CHRONOMETER REPAIRER Unavailable Unavailable Justin, L Genia CHRONOMETER REPAIRER Unavailable Unavailable Justin, L Genia CHRONOMETER REPAIRER Unavailable Unavailable Justin, L Genia CHRONOMETER REPAIRER Unavailable Unavailable Justin, L Genia CHRONOMETER REPAIRER Unavailable Unavailable Justin, L Genia CHRONOMETER REPAIRER Unavailable Unavailable Justin, L Genia CHRONOMETER REPAIRER Unavailable Unavailable Justin, L Genia CHRONOMETER REPAIRER Unavailable Unavailable Justin, L Genia CHRONOMETER REPAIRER Unavailable Unavailable Justin, L Genia CHRONOMETER REPAIRER Unavailable Unavailable GREG, A. RACECAR DRIVER FAROOQ Unavailable [phone] GREG, A. RACECAR DRIVER FAROOQ Unavailable [phone] GREG, A. RACECAR DRIVER FAROOQ Unavailable [phone] GREG, A. RACECAR DRIVER FAROOQ Unavailable [phone] GREG, A. RACECAR DRIVER FAROOQ Unavailable [phone] GREG, A. RACECAR DRIVER FAROOQ Unavailable [phone] GREG, A. RACECAR DRIVER FAROOQ Unavailable [phone] GREG, A. RACECAR DRIVER FAROOQ Unavailable [phone] GREG, A. RACECAR DRIVER FAROOQ Unavailable [phone] GREG, A. RACECAR DRIVER FAROOQ Unavailable [phone] GREG, A. RACECAR DRIVER FAROOQ Unavailable [phone] GREG, A. RACECAR DRIVER FAROOQ Unavailable [phone] GREG, A. RACECAR DRIVER FAROOQ Unavailable [phone] GREG, A. RACECAR DRIVER FAROOQ Unavailable [phone] GREG, A. RACECAR DRIVER FAROOQ Unavailable [phone] GREG, A. RACECAR DRIVER FAROOQ Unavailable [phone] DRAZEK, I SALVATORE [...] Unavailable Unavailable Dayne BARBOZA MD Unavailable Unavailable aDyne BARBOZA MD Unavailable Unavailable Dayne BARBOZA MD [...] is protected by Article 27-F of the [facility] Public Health law. If you continue you may have access to information: Regarding HIV / AIDS; Provided by facilities licensed or operated by the [facility] Office of Mental Health; or Provided by the [facility] Office for People With Developmental Disabilities. If such information is present, then the following [facility] mandated warning applies: This information has been [...] law may result in a fine or detention sentence or both. A general authorization for the release of medical or other information is NOT sufficient authorization for further disc losure. Family History Family Member Name Family Member Gender Family Member Status Date o f Status Description Data Source(s) Unknown Unknown Problem MEDENT ([facility], ) Unknown Unknown Problem MEDENT ([facility], ) Unknown Unknown Problem MEDENT ([facility], ) Unknown Unknown Problem MEDENT ([facility], ) Unknown Unknown Problem MEDENT ([facility], ) Unknown Unknown Problem MEDENT ([facility], ) Unknown Unknown Problem MEDENT ([facility], ) Encounters Encounter Providers Location Date Indications Data Source(s ) Outpatient Attender: FAROOQ GARZA 03/2021 11:45:41 AM EST - 07/12/2021 01:21:31 PM EST [facility] ([facility] ) Outpatient Attender: Stevie Reeves JR Kleber/Fellows/Tejas/Rein dl 03/30/2021 03:15:00 PM EDT MEDENT ([facility], ) Outpatient Attender: TIMOTHY BARBOZA MD Kle[facility]Fellows/Ang el/Reindl 03/12/2021 01:50:00 PM EDT [facility] Outpatient Attender: Genia Anderson NP [facility]Fellows/Tejas/Reindl 01/21/2021 01:30:00 PM EDT MEDENT ([facility], ) Office Visit Attender: SALVATORE PALMA Physical Therapy 2020 01:00:00 PM EST MEDENT ([facility]) Office Visit Attender: SALVATORE PALMA Physical Therapy 2019 03:30:00 PM EST MEDENT ([facility]) Outpatient [address] [place] [address], [facility] [phone] 08/06/2020 12:00:00 AM EST eCW1 ([facility]) Office Visit Attender: SALVATORE PALMA Physical Therapy 2019 08:15:00 AM EST MEDENT ([facility]) Office Visit Attender: SALVATORE PALMA Physical Therapy 2019 02:45:00 PM EST MEDENT ([facility]) Office Visit Attender: SALVATORE PALMA Physical Therapy 2019 01:45:00 PM EST MEDENT ([facility]) Outpatient Attender: SALVATORE PALMA Physical Therapy 07/03/2020 0 3:00:00 PM EDT MEDENT ([facility]) Immunizations Vaccine Date Status Description Data Source(s) COVID-19 VACCINE Pfizer 12/05/2020 12:00:00 AM EDT completed [facility] Vaccine Series Complete: YESThis Data wa s Submitted to [facility] [employer]. COVID-19 VACCINE Pfizer 11/14/2020 12:00:00 AM EST completed [facility] Vaccine Series Complete: NOThis Data was Submitted to [facility] [employer]. Medications Medication Brand Name Start Date Product Form Dose Route Admi nistrative Instructions Pharmacy Instructions Status Indications Reaction Description Data Source(s) meloxicam 15 MG Oral Tablet Meloxicam 09/30/2020 12:00:00 AM EST ORAL active MEDENT ([facility] ) Clindamycin 10 MG/ML Topical Lotion Clindamycin Phosph ate 1 % Clindamycin Phosphate 1 % 08/06/2020 12:00:00 AM EST 1.0 {application} active Clindamycin Phosphate 1 % eCW1 ([facility]) Insurance Providers Payer name Policy type / Coverage type Policy ID Covered democrat ID Covered democrat's relationship to cortez Policy [place] Plan Information RUSTY I [id number] Self [id number] 400 RUSTY [id number] SP [id number] 400 RUSTY [id number] SP [id number] 400 RUSTY [id number] SP [id number] 400 RUSTY [id number] SP [id number] 400 Rusty [employer] [id number] Self [id number] ANSI-Medicaid [id number] ANSI-Commercial [id number] Medicaid ..[id number] Medicaid ..[id number] [place] [id number] Commercial Ins urance Co. [id number] ANSI-Medicaid [id number] ANSI-Commercial [id number] Medicaid [facility] Part B [id number] Self [id number] Rusty Care [place] Medicaid [id number] Self [id number] Medicaid [place] Medigap Part B [id number] Self [id number] Rusty Care [place] Medicaid [id number] Self [id number] MEDICAID M [id number] S [id number] MEDICAID [id number] SP [id number] [place] Medicaid [id number] Self Medicaid [facility] Part B [id number] Self [facility] [id number] SP [id number] Medicaid [place] Medicaid [id number] Self SELF PAY UNAVAILABLE SP UNAVAILA BLE RUTSY [id number] SP [id number] 400 [employer] [facility] [place] [id number] SP [id number] [place]ARE [place] [id number] S [id number] ANSI-Medicaid [id number] ANSI-Commercial [id number] ANSI-Medicaid [id number] ANSI-Commercial [id number] Problems, Conditions, and Diagnoses Code Display Name Description Problem Type Effective Dates Data Source(s) L71.9 [id number] Acne rosacea Problem 08/06/2020 12:00:00 AM EST eCW1 ([facility]) Surgeries/Procedures Procedure Description Date Indications Data Source(s) Hemorrhoidectomy, By Simple Ligature 03/30/2021 12:00: 00 AM EDT MED[facility] ([facility], ) OFFICE OUTPATIENT VISIT 25 MINUTES 03/30/2021 12:00:00 AM EDT MEDENT ([facility], ) OFFICE OUTPATIENT VISIT 15 MINUTES 03/12/2021 12:00:00 AM EDT MEDENT ([facility]) OFFICE OUTPATIENT VISIT 15 MINUTES 01/21/2021 12:00:00 AM EDT MEDENT ([facility], ) Therapeutic Activities Direct, Each 15 Minutes 12:00:00 AM EST MED[facility] ([facility] ) THERAPEUTIC PX 1/> AREAS EACH 15 MIN EXERCISES 12:00:00 AM EST MEDENT ([facility] ) MANUAL THERAPY TQS 1/> REGIONS EACH 15 MINUTES 12:00:00 AM EST MED[facility] ([facility] ) Therapeutic Activities Direct, Each 15 Minutes 12:00:00 AM EST MEDENT ([facility] ) Re-Eval Of PT Established Plan Of Care 20Mins Face To Face P T/Fam 10/31/2020 12:00:00 AM EST [facility] ([facility] ) Therapeutic Activities Direct, Each 15 Minutes 12:00:00 AM EST MED[facility] ([facility] ) Physical Therapy Eval - Mod Complexity 09/04/2020 12:0 0:00 AM EST MEDENT ([facility]) RADEX FOOT COMPLETE MINIMUM 3 VIEWS 08/19/2020 12:00:0 0 AM EST MED[facility] ([facility]) RADEX FOOT COMPLETE MINIMUM 3 VIEWS 07/29/2020 12:00:0 0 AM EST MED[facility] ([facility]) THERAPEUTIC PX 1/> AREAS EACH 15 MIN EXERCISES 12:00:00 AM EST MED[facility] ([facility]) THERAPEUTIC PX 1/> AREAS EACH 15 MIN EXERCISES 12:00:00 AM EST MED[facility] ([facility]) Apply Cast Short Leg Walking 07/15/2020 12:00:00 AM ES T MED[facility] ([facility]) RADEX FOOT COMPLETE MINIMUM 3 VIEWS 07/10/2020 12:00:0 0 AM EST MEDENT ([facility]) THERAPEUTIC PX 1/> AREAS EACH 15 MIN EXERCISES 12:00:00 AM EST MED[facility] ([facility]) FX Metatarsal W/O Manipulation 07/03/2020 12:00:00 AM EDT MED[facility] ([facility]) RADEX FOOT COMPLETE MINIMUM 3 VIEWS 07/03/2020 12:00:0 0 AM EDT MED[facility] ([facility]) THERAPEUTIC PX 1/> AREAS EACH 15 MIN EXERCISES 12:00:00 AM EDT [facility] ([facility]) THERAPEUTIC PX 1/> AREAS EACH 15 MIN EXERCISES 12:00:00 AM EDT MED[facility] ([facility]) Results ID Date Data Source [id number] 07/12/2021 12:00:00 PM EST [facility] Name Value Range Interpretation Code Description Data Ava rce(s) Supporting Document(s) SARS-CoV-2 RNA Resp Ql BETH+probe NOT DETECTED [facility] This lab was ordered by [facility] and reported by [facility]. ID Date Data Source [id number] 06/03/2021 12:00:00 AM EDT [facility] Name Value Range Interpretation Code Description Data Ava rce(s) Supporting Document(s) SARS-CoV2 Rapid Antigen Negative [facility] This lab was ordered by [facility] an d reported by [facility]. ID Date Data Source [id number] 03/25/2021 12:00:00 AM EDT [facility] Name Value Range Interpretation Code Description Data Ava rce(s) Supporting Document(s) SARS coronavirus 2 [facility] and reported by [facility]. Procedure Social History Code Duration Value Status Description Data Source(s ) Smoking 01/21/2021 12:00:00 AM EDT Patient is a former smoker completed [facility] is a [facility] Smoking 08/06/2020 12:00:00 AM EST Former Smoker completed Former Smoker eCW1 ([facility]) Vital Signs ID Date Data Source UNK Name Value Range Interpretation Code Description Data Source(s) Systolic blood pressure 137 mm[Hg] 137 mm[Hg] [facility] Diastolic blood pressure 82 mm[Hg] 82 mm[Hg] [facility]) Body height 66 [in_i] 66 [in_i] [facility] ([facility]) 5'6" Body weight 229.25 [lb_av] 229.25 [lb_av] [facility] ([facility]) Body mass index (BMI) [Ratio] 37.0 kg/m2 37.0 k g/m2 [facility] ([facility]) [place] body weight 130 [lb_av] 130 [lb_av] [facility] ([facility]) Body weight 103.988 kg 103.988 kg [facility] ([facility]) Body surface area Derived from formula 2.12 m2 2.12 m2 [facility] ([facility]) Diastolic blood pressure 70 mm[Hg] 70 mm[Hg] [facility] ([facility]) Body height 66 [in_i] 66 [in_i] [facility] ([facility]) 5'6" Body weight 230.00 [lb_av] 230.00 [lb_av] [facility] ([facility]) Body mass index (BMI) [Ratio] 37.1 kg/m2 37.1 k g/m2 [facility] ([facility]) Body height 66 [in_i] 66 [in_i] [facility] ([facility]) 5'6" Body weight 230.00 [lb_av] 230.00 [lb_av] [facility] ([facility]) Body mass index (BMI) [Ratio] 37.1 kg/m2 37.1 k g/m2 [facility] ([facility]) [place] body weight 130 [lb_av] 130 [lb_av] [facility] ([facility]) Body weight 104.328 kg 104.328 kg [facility] ([facility]) Systolic blood pressure 116 mm[Hg] 116 mm[Hg] [facility] ([facility]) [place] body weight 130 [lb_av] 130 [lb_av] [facility] ([facility]) Body weight 104.328 kg 104.328 kg [facility] ([facility]) Body surface area Derived from formula 2.12 m2 2.12 m2 [facility] ([facility]) Body surface area Derived from formula 2.01 m2 2.01 m2 [facility] ([facility]) Systolic blood pressure 120 mm[Hg] 120 mm[Hg] [facility] ([facility]) Diastolic blood pressure 78 mm[Hg] 78 mm[Hg] [facility] ([facility]) Heart rate 77 /min 77 /min [facility] ([facility]) Oxygen saturation in Arterial blood by Pulse oximetry 97 % 97 % [facility] ([facility]) Body height 66 [in_i] 66 [in_i] [facility] ([facility]) 5'6" Body weight 203.12 [lb_av] 203.12 [lb_av] [facility] ([facility]) Body mass index (BMI) [Ratio] 32.8 kg/m2 32.8 k g/m2 [facility] ([facility]) [place] body weight 130 [lb_av] 130 [lb_av] [facility] ([facility]) Body weight 92.138 kg 92.138 kg [facility] ([facility]) Body weight 231 [lb_av] 231 [lb_av] eCW1 ([facility]) Body height 65 [in_i] 65 [in_i] eCW1 ([facility]) Body mass index (BMI) [Ratio] 38.44 kg/m2 38.44 kg/m2 [facility] ([facility]) Systolic blood pressure 124 mm[Hg] 124 mm[Hg] e CW1 ([facility]) Diastolic blood pressure 82 mm[Hg] 82 mm[Hg] [facility] ([facility]) Body temperature 96.9 [degF] 96.9 [degF] MED[facility] ([facility]) Body temperature 97.1 [degF] 97.1 [degF] MEDENT ([facility]) Patient Treatment Plan of Care Planned Activity Planned Date Details Description Data Source (s) Clindamycin 10 MG/ML Topical Lotion 08/06/2020 12:00:00 AM EST [facility] ([facility])
[2021-07-29] MEDS ORDERED: DICY20TA11 PO (10:38)
== END 2021-07-27 16:01 | disposition left against medical advice (07) ==
LOC: M ED 12:10
DX: Z53.29 Procedure and treatment not carried out because of patient's decision for other reasons (principal)

== ENCOUNTER 2021-07-29 06:03 | Emergency (ER) | payer OTHER ==
[~2021-07-29] VITALS: Ht 165.1 cm; Wt 110.0 kg
[2021-07-29] MEDS ORDERED: AZEL1SPR3 (06:09)
[2021-07-29 07:53] LABS: HEMOGLOBIN 13.6 g/dl (12.0-15.5); MEAN CORPUSCULAR HEMOGLOBIN 30.2 pg (27.0-33.0); MEAN CORPUSCULAR HGB CONC 32.4 g/dl (32.0-36.5); MEAN CORPUSCULAR VOLUME 93.3 fl (80.0-96.0); PLATELET COUNT, AUTOMATED 258 10^3/uL (150-450)
[2021-07-29] MEDS ORDERED: NS 1,000 ML IV ONE (08:00)
[2021-07-29] MEDS ORDERED: KETOROLAC 30 MG/ML 1ML VIAL IV ONE (08:00)
[2021-07-29 08:15] LABS: ALBUMIN 3.6 GM/DL (3.2-5.2); ALT/SGPT 39 U/L (12-78); BILIRUBIN,DIRECT < 0.1 MG/DL (0.0-0.2); BILIRUBIN,TOTAL 0.3 MG/DL (0.2-1.0); BLOOD UREA NITROGEN 9 MG/DL (7-18); CALCIUM LEVEL 9.1 MG/DL (8.5-10.1); CARBON DIOXIDE LEVEL 23 MEQ/L (21-32); CHLORIDE LEVEL 112 MEQ/L (98-107); CREATININE FOR GFR 0.64 MG/DL (0.55-1.30); GLOMERULAR FILTRATION RATE > 60.0 (>58); GLUCOSE, FASTING 130 MG/DL (70-100); LIPASE 229 U/L (73-393); POTASSIUM SERUM 4.5 MEQ/L (3.5-5.1); SODIUM LEVEL 143 MEQ/L (136-145); TOTAL PROTEIN 6.5 GM/DL (6.4-8.2)
[2021-07-29 08:23] LABS: WHITE BLOOD COUNT 60.3 10^3/uL (4.0-10.0)
[2021-07-29 08:57] LABS: ATYPICAL LYMPH 9 % (0-5); LYMPHOCYTES 72 % (16-44); MONOCYTES 4 % (0-5); NEUTROPHILS 15 % (28-66); PLATELET ESTIMATE NORMAL (NORMAL); SMUDGE CELLS 3+
[2021-07-29] MEDS ORDERED: ISOVUE-370 76% 100ML VIAL As Ordered ONE (09:37)
[2021-07-29 09:57] LABS: MONO REFLEX EBV COMP NEGATIVE (NEGATIVE)
[2021-07-29] MEDS: ONDANSETRON 4MG/2ML VIAL IV ONE ×2 (10:00→10:17)
[2021-07-29] MEDS: MORPHINE 4 MG/ML 1ML VIAL/SYRINGE (J2270) IV ONE ×2 (10:00→10:17)
[2021-07-29] MEDS ORDERED: DICY20TA20 PO (10:38)
[2021-07-29 10:49] VITALS: BP 120/59
[2021-08-01 14:10] LABS: EBV VIRAL CAPSID AG IgG >600.0 U/mL (0.0-17.9); EBV VIRAL CAPSID AG IgM <36.0 U/mL (0.0-35.9)
== END 2021-07-29 10:53 | disposition home or self-care (01) ==
LOC: M ED 06:03
DX: R10.10 Upper abdominal pain, unspecified (principal); Z85.6 Personal history of leukemia; E11.9 Type 2 diabetes mellitus without complications; K21.9 Gastro-esophageal reflux disease without esophagitis; K82.9 Disease of gallbladder, unspecified; F17.200 Nicotine dependence, unspecified, uncomplicated; Z79.899 Other long term (current) drug therapy; Z88.0 Allergy status to penicillin; Z88.1 Allergy status to other antibiotic agents
CPT/HCPCS: 36415; 71260; 76705; 80048; 80076; 83690; 85025; 86308; 86664; 86665; 96361; 96374; 99284; J1885; Q9967

== ENCOUNTER → 2021-08-25 | Outpatient (CLI) | payer OTHER ==
[~2021-08-25] MED LIST changes: +AZEL1SPR3; +DICY20TA11 PO
--- NOTE | 2021-08-25 17:04 | REPMRS ---
Patient History The patient states she has not had a clinical breast exam in over a year. Patient has history of other cancer at age 41. Family history of breast cancer at age 50 or over in maternal grandmother, colorectal cancer at age 50 or over in maternal aunt, ovarian cancer in paternal grandmother, ovarian cancer in paternal aunt, ovarian cancer in paternal aunt. Took hormonal contraceptives for 10 years. Tomosynthesis is performed. Volpara breast density is a. [facility] lifetime risk of breast cancer 13.8%. Patient states no breast complaints today. Patient has signed MRS History Sheet. Pfizer 11/14/20, 12/05/20. Digital Woman Screen Mammo: August 25, 2021 - Exam #: [id number] Bilateral CC and MLO view(s) were taken. Technologist: Cynthia Scherer, Technologist Prior study comparison: May 28, 2020, diagnostic bilateral mammo performed at [facility]. March 29, 2019, digital mammo diagnostic bilateral, performed at [facility]. FINDINGS: There are scattered fibroglandular densities. There has been no change in the appearance of the mammogram from the prior studies. There is a mild amount of residual fibroglandular tissue which is fairly symmetric. There is no interval development of dominant mass, architectural distortion, or clustered microcalcification suggestive of malignancy. Assessment: BI-RADS/ACR category 1 mammogram. Negative Mammogram. Recommendation Routine screening mammogram in 1 year (for women over age 40). This mammogram was interpreted with the aid of an FDA-approved computer-aided dectection system. Electronically Signed By: Julian Alonzo MD 08/25/21 [id number]
== END ==
LOC: M WHC 15:09
PROVIDERS: ATTEND Nurse Practitioner Women's Health
DX: Z12.31 Encounter for screening mammogram for malignant neoplasm of breast (principal); Z92.0 Personal history of contraception

== ENCOUNTER → 2021-10-03 | Outpatient (CLI) | payer OTHER ==
[~2021-10-03] MED LIST changes: -DICY20TA11 PO; +DICY20TA20 PO
[2021-10-03 11:59] LABS: HEMOGLOBIN A1c 5.7 %
[2021-10-03 12:03] LABS: BLOOD UREA NITROGEN 9 MG/DL (7-18); CALCIUM LEVEL 8.7 MG/DL (8.5-10.1); CARBON DIOXIDE LEVEL 26 MEQ/L (21-32); CHLORIDE LEVEL 111 MEQ/L (98-107); CREATININE FOR GFR 0.58 MG/DL (0.55-1.30); GLOMERULAR FILTRATION RATE > 60.0 (>58); GLUCOSE, FASTING 108 MG/DL (70-100); POTASSIUM SERUM 4.4 MEQ/L (3.5-5.1); SODIUM LEVEL 141 MEQ/L (136-145)
== END ==
LOC: M LAB 11:12
PROVIDERS: ATTEND Family Medicine
DX: R73.9 Hyperglycemia, unspecified (principal)

== ENCOUNTER → 2022-07-16 | Outpatient (CLI) | payer OTHER ==
[~2022-07-16] MED LIST changes: -D31000TA2 PO; +VITA100093 PO
[2022-07-16 17:56] LABS: HEMATOCRIT 40.2 % (36.0-47.0); MEAN CORPUSCULAR HEMOGLOBIN 30.9 pg (27.0-33.0); MEAN CORPUSCULAR HGB CONC 32.3 g/dl (32.0-36.5); MEAN CORPUSCULAR VOLUME 95.5 fl (80.0-96.0); PLATELET COUNT, AUTOMATED 253 10^3/uL (150-450); RED BLOOD COUNT 4.21 10^6/uL (4.00-5.40)
[2022-07-16 18:15] LABS: WHITE BLOOD COUNT 68.2 10^3/uL (4.0-10.0)
[2022-07-16 19:02] LABS: C REACTIVE PROTEIN QUANTITATIV 0.34 MG/DL (0.00-0.30); RHEUMATOID FACTOR QUANT < 10.0 IU/ML (<15.0)
[2022-07-16 19:09] LABS: ATYPICAL LYMPH 6 % (0-5); LYMPHOCYTES 84 % (16-44); MONOCYTES 1 % (0-5); NEUTROPHILS 9 % (28-66); PLATELET ESTIMATE NORMAL (NORMAL)
[2022-07-16 19:10] LABS: SMUDGE CELLS 4+
[2022-07-16 21:01] LABS: ERYTHROCYTE SEDIMENTATION RATE 10 mm/hr (0-20)
[2022-07-19 14:08] LABS: ANTINUCLEAR ANTIBODIES DIRECT Negative (Negative)
== END ==
LOC: M PLALAB 15:59
PROVIDERS: ATTEND Orthopaedic Surgery
DX: M54.50 Low back pain, unspecified (principal)

== ENCOUNTER → 2022-12-21 | Outpatient (CLI) | payer OTHER ==
[~2022-12-21] MED LIST changes: -PAXI30TA11 PO; +PAXI30TA12 PO
== END ==
LOC: M WHC 15:31
PROVIDERS: ATTEND Nurse Practitioner Family
DX: Z12.31 Encounter for screening mammogram for malignant neoplasm of breast (principal)

== ENCOUNTER → 2022-12-30 | Outpatient (REF) | payer OTHER | LOC: M SFHCWAGY 10:18 | PROVIDERS: ATTEND Nurse Practitioner Family | DX: Z12.4 Encounter for screening for malignant neoplasm of cervix (principal) | CPT/HCPCS: 87624; G0123 ==

== ENCOUNTER → 2023-09-29 | Outpatient (CLI) | payer OTHER ==
[~2023-09-29] MED LIST changes: +METH-1164 PO; +PREG25CA3; +SULF1TAB23 PO
[2023-09-29 16:46] LABS: HEMOGLOBIN 11.9 g/dl (12.0-15.5); MEAN CORPUSCULAR HEMOGLOBIN 30.8 pg (27.0-33.0); MEAN CORPUSCULAR HGB CONC 33.1 g/dl (32.0-36.5); MEAN CORPUSCULAR VOLUME 93.3 fl (80.0-96.0); PLATELET COUNT, AUTOMATED 243 10^3/uL (150-450); RED BLOOD COUNT 3.86 10^6/uL (4.00-5.40)
[2023-09-29 17:03] LABS: HEMOGLOBIN A1c 4.7 % (4.0-6.0)
[2023-09-29 17:12] LABS: PERCENT SATURATION 21.4 % (13.2-45.0)
[2023-09-29 17:14] LABS: FERRITIN 80.8 NG/ML (7.3-270.7)
[2023-09-29 18:18] LABS: WHITE BLOOD COUNT 78.3 10^3/uL (4.0-10.0)
[2023-09-29 18:52] LABS: ATYPICAL LYMPH 89 % (0-5); NEUTROPHILS 11 % (28-66)
[2023-09-29 18:53] LABS: PLATELET ESTIMATE NORMAL (NORMAL); SMUDGE CELLS 4+
== END ==
LOC: M LAB 16:07
PROVIDERS: ATTEND Family Medicine
DX: D64.9 Anemia, unspecified (principal); R73.01 Impaired fasting glucose

== ENCOUNTER → 2023-12-02 | Outpatient (CLI) | payer OTHER ==
[2023-12-02 13:21] LABS: BLOOD UREA NITROGEN 10 MG/DL (9-23); CARBON DIOXIDE LEVEL 26 MMOL/L (20-31); CHLORIDE LEVEL 111 MMOL/L (98-107); CREATININE FOR GFR 0.66 MG/DL (0.55-1.30); GLOMERULAR FILTRATION RATE > 60.0 (>58); GLUCOSE, FASTING 131 MG/DL (60-100); POTASSIUM SERUM 4.6 MMOL/L (3.5-5.1); SODIUM LEVEL 143 MMOL/L (136-145)
[2023-12-02 13:22] LABS: HEMOGLOBIN A1c 5.2 % (4.0-6.0)
== END ==
LOC: M WUC 08:54
PROVIDERS: ATTEND Family Medicine
DX: R73.01 Impaired fasting glucose (principal)

== ENCOUNTER 2024-01-01 20:15 | Emergency (ER) | payer OTHER ==
[~2024-01-01] VITALS: Ht 167.6 cm; Wt 104.2 kg
[~2024-01-01 20:15] MED LIST changes: +NITR100C2; +TIRZ2.5P3
[2024-01-01 21:34] LABS: HEMATOCRIT 39.7 % (36.0-47.0); HEMOGLOBIN 13.3 g/dl (12.0-15.5); MEAN CORPUSCULAR HEMOGLOBIN 30.6 pg (27.0-33.0); MEAN CORPUSCULAR HGB CONC 33.5 g/dl (32.0-36.5); MEAN CORPUSCULAR VOLUME 91.5 fl (80.0-96.0); PLATELET COUNT, AUTOMATED 214 10^3/uL (150-450); RED BLOOD COUNT 4.34 10^6/uL (4.00-5.40)
[2024-01-01 21:37] LABS: WHITE BLOOD COUNT 91.6 10^3/uL (4.0-10.0)
[2024-01-01 21:39] LABS: BASO % 0.5 % (0.0-1.0); EOS # 0.1 10^3/uL (0.0-0.5); EOS % 0.1 % (0.0-3.0); LYMPH # 84.6 10^3/uL (1.5-5.0); LYMPH % 92.5 % (24.0-44.0); MONO # 1.8 10^3/uL (0.0-0.8); NEUTROPHILS # 4.4 10^3/uL (1.5-8.5); NEUTROPHILS % 4.7 % (36.0-66.0)
[2024-01-01 21:40] LABS: BASO # 0.5 10^3/uL (0.0-0.2)
[2024-01-01 21:51] LABS: CK-MB VALUE MASS < 1.0 NG/ML (<3.6)
[2024-01-01 21:52] LABS: LIPASE 46 U/L (12-53)
[2024-01-01 21:54] LABS: ALBUMIN 4.1 G/DL (3.2-5.2); ALKALINE PHOSPHATASE 84 U/L (46-116); ALT/SGPT 43 U/L (7.0-40); AST/SGOT 29 U/L (<34); BILIRUBIN,DIRECT < 0.1 MG/DL (<0.4); BILIRUBIN,TOTAL 0.2 MG/DL (0.3-1.2); BLOOD UREA NITROGEN 9 MG/DL (9-23); CALCIUM LEVEL 8.7 MG/DL (8.5-10.1); CARBON DIOXIDE LEVEL 24 MMOL/L (20-31); CHLORIDE LEVEL 111 MMOL/L (98-107); CREATININE FOR GFR 0.73 MG/DL (0.55-1.30); GLOMERULAR FILTRATION RATE > 60.0 (>58); GLUCOSE, FASTING 88 MG/DL (60-100); POTASSIUM SERUM 3.9 MMOL/L (3.5-5.1); SODIUM LEVEL 144 MMOL/L (136-145); TOTAL PROTEIN 6.3 G/DL (5.7-8.2)
[2024-01-01 21:56] LABS: FREE T4 0.89 NG/DL (0.89-1.76); THYROID STIMULATING HORMONE 2.155 uIU/ML (0.55-4.78)
[2024-01-01 21:58] LABS: CPK CREATINE PHOSPHOKINASE 98 U/L (34-145); MB/CK RELATIVE INDEX 1.02 (< OR =4)
[2024-01-01 22:58] LABS: CK-MB VALUE MASS < 1.0 NG/ML (<3.6)
[2024-01-01 22:59] LABS: CPK CREATINE PHOSPHOKINASE 96 U/L (34-145); MB/CK RELATIVE INDEX 1.04 (< OR =4)
[2024-01-02 00:22] VITALS: BP 140/76; TEMP 98; O2SAT 96
== END 2024-01-02 00:24 | disposition home or self-care (01) ==
LOC: M ED 20:15
DX: R07.89 Other chest pain (principal); R20.2 Paresthesia of skin; R73.03 Prediabetes; F44.5 Conversion disorder with seizures or convulsions; Z85.6 Personal history of leukemia; Z79.899 Other long term (current) drug therapy; Z88.0 Allergy status to penicillin; Z88.1 Allergy status to other antibiotic agents

== ENCOUNTER → 2024-01-05 | Outpatient (CLI) | payer OTHER | LOC: M WHC 14:12 | PROVIDERS: ATTEND Nurse Practitioner Family | DX: Z12.31 Encounter for screening mammogram for malignant neoplasm of breast (principal) ==

== ENCOUNTER 2025-04-22 08:03 | Day surgery (SDC) | payer OTHER ==
[~2025-04-22] VITALS: Ht 165.1 cm; Wt 96.6 kg
[~2025-04-22 08:03] MED LIST changes: +SEMA0.5P; +SEMA1.7P
[2025-04-22] MEDS ORDERED: LIDOCAINE 2% 100 MG/5 ML SDV (FOR ANES.) As Ordered ONE (09:24)
[2025-04-22] MEDS: PERCOCET 5MG/325MG TAB PO ONE (10:09)
[2025-04-22 10:30] VITALS: BP 104/51; TEMP 98.6; O2SAT 97
== END 2025-04-22 10:30 | disposition home or self-care (01) ==
LOC: M OPP 08:03
PROVIDERS: ATTEND Surgery
DX: D12.6 Benign neoplasm of colon, unspecified (principal); K57.30 Diverticulosis of large intestine without perforation or abscess without bleeding; K64.3 Fourth degree hemorrhoids; Z86.0100 Personal history of colon polyps, unspecified; G47.30 Sleep apnea, unspecified; Z88.0 Allergy status to penicillin; Z88.1 Allergy status to other antibiotic agents; Z79.899 Other long term (current) drug therapy; R56.9 Unspecified convulsions

== ENCOUNTER → 2025-05-24 | Outpatient (CLI) | payer OTHER ==
[2025-05-24 18:43] LABS: PLATELET COUNT, AUTOMATED 193 10^3/uL (150-450)
[2025-05-24 19:33] LABS: LYMPHOCYTES 89 % (16-44); NEUTROPHILS 11 % (28-66); PLATELET ESTIMATE NORMAL (NORMAL)
== END ==
LOC: M WUC 13:20
PROVIDERS: ATTEND Dentist
DX: K02.9 Dental caries, unspecified (principal)